=== PATIENT | female | born 1955 | race Caucasian/White ===

== ENCOUNTER 2022-09-30 14:09 | Outpatient (OUT) | payer MEDICARE, BC, SELFPAY ==
--- NOTE | 2022-09-30 15:59 | CA_ITS ---
Patient: GOYO HENDERSON Exam Date: 09/30/2022 : 1955 Gender:F Ordering : MARKUS GARAY Admission #: [id number] Family : DR CANDI PEDRAZA M.D. Order #: [id number] CLICK HERE TO VIEW EXAM ECHOCARDIOGRAM REPORT PROCEDURE: CA ECHO DOPPLER COMPLETE INDICATIONS: SOB, CAD, JOSÉ COMPARISON: None. DESCRIPTION: COMPLETE ECHOCARDIOGRAM Real-time transthoracic echocardiography with 2D, M-mode, spectral and color flow Doppler performed. QUALITY: Technical quality was limited. LEFT VENTRICLE: Normal chamber size. Normal left ventricular wall thickness. Global left ventricular systolic function is normal. LV EF: Normal left ventricular ejection fraction, (>55%). DIASTOLIC: Normal diastolic function. ATRIAL SEPTUM: Inadequately visualized. LEFT ATRIUM: Normal chamber size. RIGHT ATRIUM: Normal chamber size. RIGHT VENTRICLE: Mild dilatation. Normal right ventricular systolic function. TRICUSPID VALVE: Normal mobility and thickness. No stenosis with trivial regurgitation. RVSP 24mmHg MITRAL VALVE: Mildly thickened with normal mobility. No evidence of mitral valve stenosis. Mild mitral regurgitation. AORTIC VALVE: Normal aortic valve. No evidence of aortic valve stenosis. No aortic regurgitation. AORTIC ROOT: Moderately dilated. PULMONIC VALVE: Not well visualized. No stenosis. Trivial regurgitation. PERICARDIUM: Anterior free space; trivial effusion versus fat pad. IVC: Not well visualized. CONCLUSION: Global left ventricular systolic function is normal; visually estimated ejection fraction is 60 to 65%. No significant wall motion abnormalities. The right ventricle is mildly dilated with normal systolic function. Normal diastolic function. Mild mitral regurgitation. Anterior free space; trivial effusion versus fat pad. Adult Echocardiography Procedure Report Left Ventricle LVEDD (3.7 - 5.6 cm): 4.50 cm LVESD (2.2 - 4.0 cm): 3.09 cm LVIVS thickness (0.6 - 1.2 cm): 0.82 cm LVOT Max Gradient: 4.51 mm[Hg] Peak Velocity (LVOT): 1.06 m/s Left Atrium Mitral Valve MV E to A Ratio: 0.98 Right Ventricle RV Internal Diastolic Dimension: 4.06 cm Aorta Ascending Ao Diam: 3.34 cm Aortic Valve Peak Velocity(Antegrade Flow): 1.48 m/s Peak Gradient(Antegrade Flow): 8.74 mm[Hg] Tricuspid Valve Peak Velocity (Regurgitant Flow): 2.31 m/s Pulmonic Valve Peak Gradient: 2.91 mm[Hg] Right Atrium Dictated by: Yi Joiner M.D. on 10/01/2022 at 18:55 Approved by: Yi Joiner M.D. on 10/01/2022 at 18:59
== END 2022-09-30 14:10 | disposition home or self-care (01) ==
LOC: CARD 14:20
PROVIDERS: PCP Family Medicine; Visit Provider Nurse Practitioner
DX: R06.02 Shortness of breath (principal); R06.09 Other forms of dyspnea; I34.0 Nonrheumatic mitral (valve) insufficiency; R93.1 Abnormal findings on diagnostic imaging of heart and coronary circulation
CPT/HCPCS: 93306

== ENCOUNTER 2022-12-04 08:13 | Outpatient (OUT) | payer MEDICARE, BC, SELFPAY ==
--- NOTE | 2022-12-04 08:19 | XR_ITS ---
The [address] [address] Patient Name: GOYO HENDERSON MRN: [id number] date: 1955 Sex: F Assigned Patient Location: [facility] Current Patient Location: [facility] Accession/Order Number: [id number] Exam Date: 12/04/2022 08:25 Report Date: 12/04/2022 08:45 At the request of: MARKUS GARAY Procedure: XR chest 2V EXAM: Chest x-ray HISTORY: Shortness of breath. R06.02 . COMPARISON: 06/11/2020 TECHNIQUE: Frontal and lateral chest FINDINGS: Heart and vascularity are unremarkable. Lungs are free of focal infiltrates. There is a small amount of atelectasis in the right lung base. No acute bony abnormality is appreciated. XR/XR chest 2V IMPRESSION: 1. Small amount of atelectasis in the right lung base. 2. Remainder of lung donaldson are unremarkable. Electronically authenticated by: SURESH CURRAN Date: 12/04/2022 08:45
[2022-12-04 08:56] LABS: Hemoglobin 14.7 g/dL (12.0-16.0)
[2022-12-04 09:46] VITALS: PULSE 78; RESP 16; O2SAT 92
[2022-12-04] MEDS: ALBUTEROL SULFATE 2.5 MG/3 ML VIAL NEB IH (09:46)
--- NOTE | 2022-12-04 10:36 | RT_ITS ---
The [facility] Test Date: 2022-12-04 Pat Name: GOYO HENDERSON Department: Room: - Gender: Female Hospital Plan Administrator: Tita Mcghee RRT : 1955 Requested By: [id number] Order Number: [id number] Reading MD: Bryce Mcknight Interpretive Statements Pulmonary function testing was completed according to ATS criteria. Findings were considered accurate and reproducible, with exception of DLCO which did not meet ATS standards. Both pre- and post-bronchodilator values utilized for spirometry. No prior studies available for comparison. Spirometry (based on pre-bronchodilator values): -FEV1/FVC: Normal @ 77% -FEV1: Reduced @ 74% -FVC: Reduced @ 74% -There is no significant bronchodilator response. Lung volumes by plethysmography (based on pre-bronchodilator values): -RV: Normal @ 108% -TLC: Normal @ 105% Diffusion capacity: -DLCO: Moderate reduction @ 64% when corrected for Hb 14.7g/dL Flow-volume loop: -Mild restrictive pattern Impressions: -Spirometry has mixed obstructive and restrictive features. Restriction is not evident in lung volumes as they are normal. This pattern may be due to patient's obesity (stated BMI 40). Moderate diffusion impairment, but she did not meet ATS criteria. There may be an underlying obstructive process, but overall testing is non-diagnostic. Clinical correlation required. Electronically Signed On 12-10-2022 13:27:46 EDT by Bryce Mcknight
== END 2022-12-04 08:14 | disposition home or self-care (01) ==
LOC: RAD 08:13
PROVIDERS: PCP Family Medicine; Visit Provider Nurse Practitioner
DX: R06.02 Shortness of breath (principal)
CPT/HCPCS: 36415; 71046; 85018; 94060; 94640; 94726; 94729

== ENCOUNTER 2023-01-19 09:18 | Outpatient (OUT) | payer MEDICARE, BC, SELFPAY ==
[2023-01-19 09:52] LABS: Basophils Percent Auto 0.9 % (0.2-2.0); Eosinophils Absolute Auto 0.1 10^3/uL (0.0-0.7); Eosinophils Percent Auto 1.9 % (0.9-7.0); Hematocrit 42.6 % (36.0-48.0); Hemoglobin 14.3 g/dL (12.0-16.0); Immature Granulocytes Abs Auto 0.01 10^3/uL (0.00-0.03); Immature Granulocytes Pct Auto 0.2 % (0.0-0.5); Lymphocytes Absolute Auto 1.6 10^3/uL (1.2-3.8); Lymphocytes Percent Auto 34.6 % (20.5-60.0); Mean Corpuscular HGB Conc 33.6 g/dL (29.9-35.2); Mean Corpuscular Hemoglobin 31.3 pg (26.7-34.0); Mean Corpuscular Volume 93.2 fL (81.0-99.0); Mean Platelet Volume 10.3 fL (9.5-13.5); Monocytes Absolute Auto 0.4 10^3/uL (0.3-0.8); Monocytes Percent Auto 8.8 % (1.7-12.0); Neutrophils Absolute Auto 2.5 10^3/uL (1.4-6.5); Neutrophils Percent Auto 53.6 % (43.0-75.0); Platelet Count 211 10^3/uL (150-450); Red Blood Count 4.57 10^6/uL (4.20-5.40); Red Cell Distribution Width 12.1 % (11.0-15.0); White Blood Count 4.7 10^3/uL (4.0-11.0)
[2023-01-22 12:14] LABS: Immunoglobulin E, Total 59 IU/mL (6-495)
== END 2023-01-19 09:19 | disposition home or self-care (01) ==
LOC: LAB 09:19
PROVIDERS: PCP Family Medicine; Visit Provider Internal Medicine
DX: J44.9 Chronic obstructive pulmonary disease, unspecified (principal)
CPT/HCPCS: 36415; 82785; 85025

== ENCOUNTER 2024-06-06 20:51 | Outpatient (OUT) | payer MEDICARE, SELFPAY ==
--- OUTSIDE RECORDS SUMMARY | 2024-06-06 20:54 | XMS_ITS | CCD ---
Author Organization [facility] Care Team Providers Care Magistrate Assistant Name Role Phone LoulouAmadeo ambriz Young Attending Provider Luis Enrique Pedraza Primary Care Provider [phone] MISC, DR PRADO Attending Unavailable MISC, DR PRADO Consulting Unavailable MILO, DR CHRISTOPHER Primary Care Unavailable MISC, DR PRADO Admitting Unavailable TANISHA, MARKUS Admitting Unavailable TANISHA, MARKUS Attending Unavailable TANISHA, MARKUS Consulting Unavailable MILO, DR CHRISTOPHER Primary Care Unavailable HEMMER, DR RAYNA Hair Admitting Unavailable HEMMER, DR RAYNA Hair Attending Unavailable HEMMER, DR RAYNA Hair Consulting Unavailable MILO, DR CHRISTOPHER Primary Care Unavailable MILO, DR CHRISTOPHER Primary Care Unavailable SAMSA .RONN Admitting Unavailable HOOD RIVER, DR SURESH Sandoval Consulting Unavailable SAMSA ., RONN Attending Unavailable SAMSA ., RONN Consulting Unavailable Booker Ch Unavailable Luis Enrique Pedraza MD Primary Care Provider [phone] LUIS ENRIQUE PEDRAZA Primary Care Physician RAYNA AVILES Referring Unavailable HEMRAYNA ZAVALETA Attending Unavailable AMBER GARY Attending Unavailable HEMRAYNA ZAVALETA Attending Unavailable HEMRAYNA ZAVALETA Referring Unavailable HEMRAYNA ZAVALETA Referring Unavailable RAMBASEDALE Tejeda Attending Unavailable HEMRAYNA ZAVALETA Attending Unavailable HEMRAYNA ZAVALETA Attending Unavailable RAMBASEKDALE Attending Unavailable HEMRAYNA ZAVALETA Attending Unavailable HEMRAYNA ZAVALETA Referring Unavailable TANISHA, MARKUS Attending Unavailable MOUKAARUN MTZ Attending Unavailable Unavailable Unavailable Unavailable Allergies Allergy Classification Reported Allergen(s) Allergy Type Date of Onset Reaction(s) Facility Unclassified (1 source) No Known Medication Allergies; Translations: [No Known Medication Allergies] Propensity to adverse reactions (disorder) [facility] Repository (1 source) celecoxib Drug Allergy 0 [facility] Repository (1 source) Cephalexin Drug Allergy 0 [facility] Repository (12 sources) Other Propensity to adverse reactions 3 [facility] Work Phone: Medications Current Medications Medication Drug Class(es) Dates Sig (Normalized) Sig (Original) [id number] 200 actuat albuterol 0.09 mg/actuat metered dose inhaler (12 sources) beta2-Adrenergic Agonist take 2 puff(s) by inhalation every four hours albuterol HFA 90 mcg/act inhaler Inhale 2 puffs every 4 (four) hours if needed. Active amoxicillin 875 mg oral tablet (1 source) Penicillin-class Antibacterial Start: 05-05-2023 End: 05-12-2023 take 1 tablet by mouth in the morning amoxicillin (Amoxil) 875 MG tablet Indications: Acute non-recurrent maxillary sinusitis Take 1 tablet (875 mg) by mouth in the morning and 1 tablet (875 mg) before bedtime. Do all this for 7 days. 14 tablet 0 05/05/2023 05/12/2023 Active aspirin 81 mg delayed release oral tablet (13 sources) Platelet Aggregation Inhibitor, Nonsteroidal Anti-inflammatory Drug Start: 07-11-2020 End: 05-23-2024 take 1 tablet by mouth once daily aspirin 81 mg Oral EC Tab 81 mg = 1 tab(s), Oral, Daily, # 30 tab(s), Refills(s) 0 Start Date: 07/11/20 Status: Ordered 120 actuat budesonide 0.16 mg/actuat / formoterol fumarate 0.0048 mg/actuat / glycopyrrolate 0.009 mg/actuat metered dose inhaler (13 sources) Corticosteroid, beta2-Adrenergic Agonist Start: 04-06-2022 Breztri Aerosphere 160-9-4.8 MCG/ACT aerosol 04/06/2022 Active take 2 puff(s) by inhalation twi ce daily Breztri Aerosphere 160-9-4.8 MCG/ACT 2 puffs Inhalation Twice a day Active cholecalciferol 0.05 mg oral tablet (9 sources) Vitamin D Start: 06-01-2023 take 1 tablet by mouth once daily cholecalciferol 50 MCG (2000 UT) tablet Indications: Osteopenia of multiple sites Take 2,000 Units by mouth Daily 06/01/2023 Active Claritin-D 24 Hour (1 source) Claritin-D 24 Ho ur Active estradiol 0.1 mg/ml vaginal cream (12 sources) Estrogen Start: 06-04-2022 estradiol (Estrace) 0.1 MG/GM vaginal cream Insert 1 g into the vagina 2 (two) times a week. 06/04/2022 Active ezetimibe 10 mg oral tablet (10 sources) Dietary Cholesterol Absorption Inhibitor Start: 04-30-2023 End: 04-29-2024 take 1 tablet by mouth in the morning ezetimibe (Zetia) 10 MG tablet Take 10 mg by mouth in the morning. 04/30/2023 Active fluticasone propionate 0.05 mg/actuat metered dose nasal spray (12 sources) Corticosteroid Start: 05-23-2024 End: 05-23-2025 take 2 spray(s) nasal route once daily fluticasone (Flonase) 50 MCG/ACT nasal spray Indications: OME (otitis media with effusion), left Administer 2 sprays into each nostril Daily Shake gently. Before first use, prime pump. After use, clean tip and replace cap. 48 g 3 05/23/2024 05/23/2025 Active Start: 03-18-2022 End: 02-08-2024 take 2 spray(s) nasal route once daily fluticasone (Flonase) 50 MCG/ACT nasal spray Administer 2 sprays into each nostril 1 (one) time each day at the same time. 03/18/2022 02/08/2024 Discontinued take 1 spray(s) nasa l route once daily Fluticasone Propionate 50 MCG/ACT 1 spray in each nostril Nasally Once a day Active hydroCHLOROthiazide 25 mg oral tablet (4 sources) Thiazide Diuretic take 1 tablet by mouth in the morning hydroCHLOROthiazide (HYDRODiuril) 25 MG tablet Take 25 mg by mouth in the morning. 0 Active Claritin (13 sources) Start: 2020 Claritin Daily, Refills(s) 0 Start Date: 07/11/20 Status: Ordered loratadine (Clar itin) 10 MG tablet Take by mouth Active meloxicam 15 mg oral tablet (14 sources) Nonsteroidal Anti-inflammatory Drug Start: 03-23-2024 take 1 tablet by mouth once daily meloxicam (Mobic) 15 MG tablet Indications: Arthralgia, unspecified joint TAKE 1 TABLET BY MOUTH ONCE DAILY 90 tablet 3 03/23/2024 Active Start: 07-11-2020 take 1 tablet by kya th once daily meloxicam (Mobic) 15 MG tablet Indications: Arthralgia, unspecified joint TAKE 1 TABLET BY MOUTH ONCE DAILY 90 tablet 3 04/23/2023 Active 24 hr metFORMIN hydrochloride 500 mg extended release oral tablet (9 sources) Biguanide Start: 05-13-2023 End: 06-16-2024 take 1 tablet by mouth every twenty-four hours at mealtime metFORMIN XR (Glucophage-XR) 500 MG 24 hr tablet Indications: Impaired fasting glucose TAKE 1 TABLET BY MOUTH IN THE EVENING TAKE WITH MEALS DO NOT CRUSH, CHEW, OR SPLIT 90 tablet 3 03/23/2024 Active 24 hr metoprolol succinate 25 mg extended release oral tablet (13 sources) beta-Adrenergic Braydon Start: 09-15-2022 End: 05-23-2024 take 1 tablet by mouth every twenty-four hours in the morning metoprolol succinate XL (Toprol-XL) 25 MG 24 hr tablet Take 25 mg by mouth in the morning. 09/15/2022 05/23/2024 Discontinued (Therapy completed) take 1 tablet by kya th every twenty-four hours Metoprolol Succinate ER 25 MG 1 tablet Orally Once a day Active 60 actuat olodaterol 0.0025 mg/actuat / tiotropium 0.0025 mg/actuat inhalation spray (1 source) Anticholinergic, beta2-Adrenergic Agonist Start: 07-18-2020 Stiolto Respimat 2.5 mcg-2.5 mcg inhalation aerosol Inhalation, q24hr, Refills(s) 0 Start Date: 07/18/20 Status: Ordered omeprazole 40 mg delayed release oral capsule (1 source) Proton Pump Inhibitor Start: 07-11-2020 take 1 capsule by mouth once daily omeprazole 40 mg Cap-DR 40 mg = 1 cap(s), Oral, Daily, # 30 cap(s), Refills(s) 0 Start Date: 07/11/20 Status: Ordered predniSONE 10 mg oral tablet (2 sources) Start: 02-08-2024 End: 02-16-2024 take 1 tablet by mouth three times daily, then take 1 tablet by mouth twice daily, then take 1 tablet by mouth once daily predniSONE (Deltasone) 10 MG tablet Indications: Chronic bilateral low back pain without sciatica Take 1 tablet (10 mg) by mouth 3 (three) times a day for 3 days, THEN 1 tablet (10 mg) 2 (two) times a day for 3 days, THEN 1 tablet (10 mg) Daily for 3 days. 18 tablet 02/08/2024 02/16/2024 Active simvastatin 20 mg oral tablet (5 sources) HMG-CoA Reductase Inhibitor take 1 tablet by mouth at bedtime simvastatin (Zocor) 20 MG tablet Take 20 mg by mouth at bedtime Active Tezepelumab-ekko (Tezspire) 210 MG/1.91ML solution prefilled syringe (9 sources) inject 210 mg by subcutaneous injection every 30 days Tezepelumab-ekko (Tezspire) 210 MG/1.91ML solution prefilled syringe Inject 210 mg under the skin every 30 (thirty) days Active tiZANidine 4 mg oral tablet (5 sources) Central alpha-2 Adrenergic Agonist Start: 02-08-2024 End: 02-18-2024 take 1 tablet by mouth every eight hours for muscle spasms tiZANidine (Zanaflex) 4 MG tablet Indications: Chronic bilateral low back pain without sciatica Take 1 tablet (4 mg) by mouth every 8 (eight) hours if needed for muscle spasms for up to 10 days 30 tablet 02/08/2024 Active Completed/Discontinued Medications Medication Drug Class(es) Dates Sig (Normalized) Sig (Original) atorvastatin 40 mg oral tablet (2 sources) HMG-CoA Reductase Inhibitor Start: 07-27-2022 End: 05-05-2023 take 1 tablet by mouth in the morning atorvastatin (Lipitor) 40 MG tablet Take 40 mg by mouth in the morning. 0 07/27/2022 05/05/2023 Discontinued (Side effects) calcium carbonate 1500 mg oral tablet (6 sources) Start: 06-01-2023 End: 02-08-2024 take 1 tablet by mouth in the morning calcium carbonate (Calcium 600) 600 MG tablet Indications: Osteopenia of multiple sites Take 1 tablet (600 mg) by mouth in the morning and 1 tablet (600 mg) in the evening. Take with meals. 06/01/2023 02/08/2024 Discontinued microencapsulated potassium chloride 10 meq extended release oral tablet (6 sources) Start: 12-01-2023 End: 02-08-2024 take 1 tablet by mouth once daily potassium chloride CR (KLOR-CON) 10 MEQ ER tablet Indications: Localized edema TAKE 1 TABLET BY MOUTH ONCE A DAY *DO NOT CRUSH OR CHEW* 100 tablet 3 12/01/2023 02/08/2024 Discontinued pravastatin sodium 10 mg oral tablet (7 sources) HMG-CoA Reductase Inhibitor Start: 04-30-2023 End: 04-29-2024 take 1 tablet by mouth in the morning pravastatin (Pravachol) 10 MG tablet Take 10 mg by mouth in the morning. 04/30/2023 02/08/2024 Discontinued torsemide 10 mg oral tablet (6 sources) Loop Diuretic Start: 12-01-2023 End: 02-08-2024 take 1 tablet by mouth once daily torsemide (Demadex) 10 MG tablet Indications: Localized edema TAKE 1 TABLET (10 MG) BY MOUTH DAILY. 100 tablet 3 12/01/2023 02/08/2024 Discontinued Problems Active Problems Problem Classification Problem Date Documented Date Episodic/Chronic Administrative/social admission (3 sources) Patient encounter status; Translations: [Other specified counseling] 05-05-2023 Episodic Asthma (17 sources) Mild persistent asthma; Translations: [Mild persistent asthma, uncomplicated] Onset: 04-21-2023 Chronic Cancer of kidney and renal pelvis (12 sources) Malignant tumor of kidney; Translations: [Malignant neoplasm of unspecified kidney, except renal pelvis] Onset: 08-01-2008 05-05-2023 Chronic Cardiac dysrhythmias (14 sources) Palpitations; Translations: [Palpitations] Onset: 05-05-2023 05-05-2023 Episodic Chronic kidney disease (12 sources) Chronic kidney disease stage 3A ; Translations: [Stage 3a chronic kidney disease (HCC) (CMS/HCC)] Onset: 05-05-2023 05-05-2023 Chronic Chronic obstructive pulmonary disease and bronchiectasis (4 sources) Chronic obstructive pulmonary disease, unspecified; Translations: [COPD UNSPECIFIED] Onset: 01-05-2022 Chronic Coronary atherosclerosis and other heart disease (18 sources) Atherosclerotic heart disease of [place] coronary artery without angina pectoris; Translations: [Coronary arteriosclerosis] Onset: 08-01-2022 Chronic Disorders of lipid metabolism (14 sources) Mixed hyperlipidemia; Translations: [Mixed hyperlipidemia] Onset: 09-16-2022 05-05-2023 Chronic Diverticulosis and diverticulitis (13 sources) Diverticulosis of intestine, part unspecified, without perforation or abscess without bleeding; Translations: [Diverticulosis of colon] Onset: 05-05-2023 05-05-2023 Chronic Epilepsy; convulsions (12 sources) Generalized idiopathic epilepsy and epileptic syndromes, not intractable, without status epilepticus; Translations: [Generalized nonconvulsive epilepsy, without mention of intractable epilepsy] Onset: 05-05-2023 05-05-2023 Chronic Essential hypertension (14 sources) Essential hypertension; Translations: [Essential (primary) hypertension] Onset: 05-05-2023 05-05-2023 Chronic Gastritis and duodenitis (1 source) Chronic gastritis; Translations: [Unspecified chronic gastritis without bleeding] 05-05-2023 Chronic Gastroduodenal ulcer (except hemorrhage) (1 source) Peptic ulcer, site unspecified, unspecified as acute or chronic, without hemorrhage or perforation; Translations: [Peptic ulcer disease] Chronic Malaise and fatigue (12 sources) Fatigue; Translations: [Chronic fatigue, unspecified] Onset: 05-05-2023 05-05-2023 Chronic Menopausal disorders (10 sources) Decreased estrogen level; Translations: [Other primary ovarian failure] Onset: 09-07-2023 05-05-2023 Chronic Osteoarthritis (20 sources) Osteoarthritis of right sternoclavicular joint; Translations: [Primary osteoarthritis, right shoulder] Onset: 04-19-2020 05-05-2023 Chronic Other acquired deformities (12 sources) Equinus contracture of the ankle; Translations: [Contracture, right ankle] Onset: 05-05-2023 05-05-2023 Chronic Other acquired deformities (3 sources) Scoliosis deformity of spine; Translations: [Other forms of scoliosis, lumbosacral region] Onset: 02-09-2024 02-09-2024 Chronic Other aftercare (2 sources) Long-term current use of inhaled steroid; Translations: [senior care (current) use of inhaled steroids] Onset: 05-23-2024 05-23-2024 Episodic Other ear and sense organ disorders (12 sources) Sensorineural hearing loss, bilateral; Translations: [Sensorineural hearing loss, bilateral] Onset: 05-05-2023 05-05-2023 Chronic Other ear and sense organ disorders (12 sources) Chronic tympanitis; Translations: [Chronic myringitis, unspecified ear] Onset: 05-05-2023 05-05-2023 Chronic Other female genital disorders (2 sources) Abnormal uterine bleeding; Translations: [Abnormal uterine and vaginal bleeding, unspecified] 02-08-2024 Chronic Other lower respiratory disease (2 sources) Shortness of breath; Translations: [Shortness of breath] Onset: 06-02-2024 Episodic Other non-traumatic joint disorders (3 sources) Disorder of joint of shoulder region; Translations: [Other specified joint disorders, right shoulder] Onset: 05-05-2023 05-05-2023 Episodic Other nutritional; endocrine; and metabolic disorders (10 sources) Severe obesity; Translations: [Morbid (severe) obesity due to excess calories] Onset: 06-01-2023 05-05-2023 Chronic Other upper respiratory disease (1 source) Allergic rhinitis due to pollen; Translations: [Allergic rhinitis due to pollen] 05-05-2023 Chronic Other upper respiratory disease (11 sources) Allergic rhinitis; Translations: [Allergic rhinitis, unspecified] Onset: 04-30-2023 05-05-2023 Chronic Other upper respiratory infections (12 sources) Chronic sinusitis; Translations: [Chronic sinusitis, unspecified] Onset: 05-05-2023 05-05-2023 Chronic Other upper respiratory infections (1 source) Acute maxillary sinusitis; Translations: [Acute maxillary sinusitis, unspecified] 05-05-2023 Episodic Otitis media and related conditions (14 sources) Dysfunction of bilateral eustachian tubes; Translations: [Unspecified Eustachian tube disorder, bilateral] Onset: 05-05-2023 05-05-2023 Episodic Pulmonary heart disease (14 sources) Pulmonary hypertension; Translations: [Pulmonary hypertension, unspecified] Onset: 05-05-2023 Chronic Residual codes; unclassified (16 sources) Obstructive sleep apnea syndrome; Translations: [Obstructive sleep apnea (adult) (pediatric)] Onset: 12-28-2022 12-28-2022 Chronic Residual codes; unclassified (1 source) Obstructive sleep apnea (adult) (pediatric) Chronic Residual codes; unclassified (11 sources) 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; Translations: [Dependence on other enabling machines and devices] Onset: 05-05-2023 05-05-2023 Chronic Residual codes; unclassified (1 source) Lifestyle; Translations: [Other problems related to lifestyle] 05-05-2023 Episodic Residual codes; unclassified (2 sources) Passive smoker; Translations: [Contact with and (suspected) exposure to environmental tobacco smoke (acute) (chronic)] Onset: 05-23-2024 05-23-2024 Episodic Spondylosis; intervertebral disc disorders; other back problems (6 sources) Lumbar spondylosis; Translations: [Spondylosis without myelopathy or radiculopathy, lumbar region] Onset: 02-09-2024 02-09-2024 Chronic Spondylosis; intervertebral disc disorders; other back problems (2 sources) Chronic low back pain; Translations: [Chronic bilateral low back pain without sciatica] 02-08-2024 Episodic Urinary tract infections (9 sources) Chronic cystitis; Translations: [Other chronic cystitis without hematuria] Onset: 09-07-2023 09-07-2023 Chronic Past or Other Problems Problem Classification Problem Date Documented Da te Episodic/Chronic Diabetes mellitus without complication (17 sources) Impaired fasting glucose; Translations: [Impaired fasting glycemia] Onset: 09-09-2021 Episodic Gastritis and duodenitis (11 sources) Gastritis; Translations: [Gastritis, unspecified, without bleeding] Onset: 05-05-2023 05-05-2023 Episodic Mood disorders (10 sources) Mood disorders Onset: 05-05-2023 05-05-2023 Other bone disease and musculoskeletal deformities (9 sources) Osteopenia; Translations: [Other specified disorders of bone density and structure, multiple sites] Onset: 06-01-2023 06-01-2023 Episodic Other ear and sense organ disorders (12 sources) Bilateral tinnitus; Translations: [Tinnitus, bilateral] Onset: 05-05-2023 05-05-2023 Episodic Other ear and sense organ disorders (11 sources) Bullous myringitis of left ear; Translations: [Bullous myringitis, left ear] Onset: 05-05-2023 Resolved: 05-05-2023 05-05-2023 Episodic Other liver diseases (12 sources) ALT (SGPT) level raised; Translations: [Elevated ALT measurement] Onset: 05-05-2023 05-05-2023 Episodic Other lower respiratory disease (12 sources) Dyspnea on exertion; Translations: [Other forms of dyspnea] Onset: 09-16-2022 05-05-2023 Episodic Other non-traumatic joint disorders (9 sources) Arthropathy of right shoulder; Translations: [Other specified joint disorders, right shoulder] Onset: 05-05-2023 05-05-2023 Episodic Other nutritional; endocrine; and metabolic disorders (11 sources) Body mass index 30+ - obesity; Translations: [Body mass index (BMI) 38.0-38.9, adult] Onset: 04-30-2023 Resolved: 05-05-2023 05-05-2023 Chronic Other screening for suspected conditions (not mental disorders or infectious disease) (20 sources) Mammography abnormal; Translations: [Other abnormal and inconclusive findings on diagnostic imaging of breast] Onset: 05-05-2023 05-05-2023 Episodic Residual codes; unclassified (12 sources) Localized edema; Translations: [Localized edema] Onset: 05-05-2023 05-05-2023 Episodic Results Test Name Value Interpretation Reference Range Facility Office Visiton 06-02-2024 Follow-up visit [id number] Maicol Michelle 1955 F Date Provider Department Center 06/02/2024 ARUN RODGERS [facility] Family History Problem Relation Age of Onset Diabetes Mother No Known Problems Father Family Status - Relation Status Age at Mother Father Level of Service:50302 [place] OFFICE/OUTPATIENT ESTABLISHED MOD MDM 30 MIN Normal [facility] XR LUMBAR SPINE 4+ VIEWS WIT H FLEXION EXTENSIONon 02-09-2024 XR LUMBAR SPINE 4+ VIEWS WITH FLEXION EXTENSION Exam: XR LUMBAR SPINE 4+ VIEWS WITH FLEXION EXTENSION Reason for study: Worsening chronic low back pain Comparison: None AP, lateral, lateral flexion, lateral extension, and bilateral oblique views. There is a slight levoconvex curvature of the lumbar spine. No compression deformities. No dynamic instability is seen. There is mild disc space narrowing at L2-L3. There is facet joint osteoarthritis at every level but more severe at L5-S1 and L4-L5. IMPRESSION: Severe facet joint osteoarthritis. Mild disc degeneration of L2-L3. Levoconvex curve of the lower lumbar spine. Dictated on: 02/09/2024 9:54 AM This report has been electronically signed and approved by the interpreting Radiologist. Normal Not Available XR Lumbar spine Views W flex ion and W extensionon 02-09-2024 Exam: XR LUMBAR SPIN E 4+ VIEWS WITH FLEXION EXTENSION Reason for study: Worsening chronic low back pain Comparison: None AP, lateral, lateral flexion, lateral extension, and bilateral oblique views. There is a slight levoconvex curvature of the lumbar spine. No compression deformities. No dynamic instability is seen. There is mild disc space narrowing at L2-L3. There is facet joint osteoarthritis at every level but more severe at L5-S1 and L4-L5. IMPRESSION: Severe facet joint osteoarthritis. Mild disc degeneration of L2-L3. Levoconvex curve of the lower lumbar spine. Dictated on: 02/09/2024 9:54 AM This report has been electronically signed and approved by the interpreting Radiologist. IMAGING Jaxon Lynch DO - 02/09/2024 Exam: XR LUMBAR SPINE 4+ VIEWS WITH FLEXION EXTENSION Reason for study: Worsening chronic low back pain Comparison: None AP, lateral, lateral flexion, lateral extension, and bilateral oblique views. There is a slight levoconvex curvature of the lumbar spine. No compression deformities. No dynamic instability is seen. There is mild disc space narrowing at L2-L3. There is facet joint osteoarthritis at every level but more severe at L5-S1 and L4-L5. IMPRESSION: Severe facet joint osteoarthritis. Mild disc degeneration of L2-L3. Levoconvex curve of the lower lumbar spine. Dictated on: 02/09/2024 9:54 AM This report has been electronically signed and approved by the interpreting Radiologist. [facility] Radiology Study observation (narrative) [facility] XR Lumbar spine Views W flex ion and W extensionOrdered By: Jaxon Lynch on 02-09-2024 [facility] Work Phone: Office Visiton 12-08-2023 Follow-up visit [id number] Maicol Michelle 1955 F Date Provider Department Center 12/08/2023 MARKUS ZHAO CARD [facility] Family History Problem Relation Age of Onset Diabetes Mother No Known Problems Father Family Status - Relation Status Age at Mother Father Level of Service:61709 [place] OFFICE/OUTPATIENT ESTABLISHED LOW MDM 20 MIN Normal [facility] BI MAMMOGRAM DIAGNOSTIC CAILIN SYNTHESIS LEFTon 06-10-2023 BI MAMMOGRAM DIAGNOSTIC TOMOSYNTHESIS LEFT This is a summary report. The complete report is available in the patient's medical record. If you cannot access the medical record, please contact the sending organization for a detailed fax or copy. EXAMINATION: BI MAMMOGRAM DIAGNOSTIC TOMOSYNTHESIS LEFT CLINICAL HISTORY:Abnormal Left Breast Mammogram COMPARISON: May 18, 2023. RESULT: Digital mammography and 3D tomosynthesis of the left breast was performed. Density: Almost entirely fatty [1] Layering calcifications seen on the lateral view within the new group of microcalcifications upper outer quadrant, atypically benign appearance. No associated suspicious mass or distortion. IMPRESSION: BIRADS 2 - Benign Follow-up: Routine Screening Mamm Board Certified Radiologists. Accredited by the ACR and FDA. MAMMOGRAPHY IS VERY IMPORTANT TO YOUR HEALTH. THE [place] [employer] GUIDELINES RECOMMEND THAT WOMEN 40 YEARS OF AGE AND OLDER SHOULD HAVE A MAMMOGRAM EVERY YEAR. A REMINDER LETTER WILL BE SENT AT THE APPROPRIATE TIME. THIS FACILITY UTILIZES A REMINDER SYSTEM TO ENSURE ALL PATIENTS RECEIVE REMINDER NOTIFICATIONS AT THE APPROPRIATE TIME BASED ON THE RECOMMENDATIONS OF THIS EXAM. THIS INCLUDES REMINDERS FOR ROUTINE SCREENING MAMMOGRAMS, DIAGNOSTIC MAMMOGRAMS IN WHICH THE PATIENT IS ASKED TO RETURN FOR ADDITIONAL VIEWS, OR OTHER BREAST IMAGING INTERVENTIONS WHEN APPROPRIATE. THE PATIENT WILL BE PLACED IN THE APPROPRIATE REMINDER SYSTEM INCLUDING A REMINDER AT THE APPROPRIATE TIME FOR ANY PENDING ADDITIONAL VIEWS. TRANSCRIBED BY: ELECTRONICALLY SIGNED BY: Adonis Crocker MD Normal Not Available Physician Referralon 024 Physician Referral [id number] [phone] [id number] F Normal [facility] [place] 06-09-2023 Consent [id number] FF Normal [facility] Physician Referralon 024 Physician Referral [id number] FF Normal [facility] XR ABDOMEN 1 VIEWon 06-02-19 24 XR ABDOMEN 1 VIEW EXAMINATION: XR ABDO MEN 1 VIEW HISTORY: Renal calculi TECHNIQUE: Frontal view of the abdomen and pelvis obtained COMPARISON: CT abdomen/pelvis November 16, 2019 FINDINGS: No calcifications identified over the bilateral renal shadows or expected course of the ureters. Pelvic phleboliths are identified. Nonobstructive bowel gas pattern. No evidence of free air. No acute osseous abnormality. IMPRESSION: No urinary tract calculi identified by radiography. ELECTRONICALLY SIGNED BY: Tadeo Butt, DO Normal Not Available CBC AUTO DIFFon 08-01-2022 BASO # 0.0 103/ul Normal 0.0-0.1 [facility] Comment on above: Performed By: #### C BC #### [facility] [address] [place] [address] Dr. Todd Phillip Basophils/100 WBC (Bld) 0.2 % Normal 0.2-2.0 [facility] Comment on above: Performed By: #### C BC #### [facility] [address] [place] [address] Dr. Todd Phillip EO # 0.1 103/ul Normal 0.0-0.7 [facility] Comment on above: Performed By: #### C BC #### [facility] [address] [place] [address] Dr. Todd Phillip Eosinophils/100 WBC (Bld) 1.4 % Normal 0.9-7.0 [facility] Comment on above: Performed By: #### C BC #### [facility] [address] [place] [address] Dr. Todd Phillip Erythrocyte distribution width (RBC) [Ratio] 12.4 % Normal 11.0-15.0 [facility] Comment on above: Performed By: #### C BC #### [facility] [address] [place] [address] Dr. Todd Phillip Hematocrit (Bld) [Volume fraction] 43.5 % Normal 36.0-48.0 [facility] Comment on above: Performed By: #### C BC #### [facility] [address] [place] [address] Dr. Todd Phillip Hemoglobin (Bld) [Mass/Vol] 14.3 g/dL Normal 12.0-16.0 [facility] Comment on above: Performed By: #### C BC #### [facility] [address] [place] [address] Dr. Todd Phillip IG # 0.01 10e3/ul Normal 0.00-0.03 [facility] Comment on above: Performed By: #### C BC #### [facility] [address] [place] [address] Dr. Todd Phillip IG % 0.2 % Normal 0.0-0.5 [facility] Comment on above: Performed By: #### C BC #### [facility] [address] [place] [address] Dr. Todd Phillip LYMPH # 1.8 103/ul Normal 1.2-3.8 [facility] Comment on above: Performed By: #### C BC #### [facility] [address] [place] [address] Dr. Todd Phillip Lymphocytes/100 WBC (Bld) 42.5 % Normal 20.5-60.0 [facility] Comment on above: Performed By: #### C BC #### [facility] [address] [place] [address] Dr. Todd Phillip MANUAL DIFF REQ NO Normal [facility] Comment on above: Performed By: #### C BC #### [facility] [address] [place] [address] Dr. Todd Phillip MCH (RBC) [Entitic mass] 30.5 pg Normal 26.7-34.0 [facility] Comment on above: Performed By: #### C BC #### [facility] [address] [place] [address] Dr. Todd Phillip MCHC (RBC) [Mass/Vol] 32.9 g/dL Normal 29.9-35.2 [facility] Comment on above: Performed By: #### C BC #### [facility] [address] [place] [address] Dr. Todd Phillip MCV (RBC) [Entitic vol] 92.8 fL Normal 81.0-99.0 [facility] Comment on above: Performed By: #### C BC #### [facility] [address] [place] [address] Dr. Todd Phillip MONO # 0.4 103/ul Normal 0.3-0.8 [facility] Comment on above: Performed By: #### C BC #### [facility] [address] [place] [address] Dr. Todd Phillip Monocytes/100 WBC (Bld) 8.4 % Normal 1.7-12.0 [facility] Comment on above: Performed By: #### C BC #### [facility] [address] [place] [address] Dr. Todd Phillip NEUT # 2.0 103/ul Normal 1.4-6.5 [facility] Comment on above: Performed By: #### C BC #### [facility] [address] [place] [address] Dr. Todd Phillip Neutrophils/100 WBC (Bld) 47.3 % Normal 43.0-75.0 [facility] Comment on above: Performed By: #### C BC #### [facility] [address] [place] [address] Dr. Todd Phillip Platelet mean volume (Bld) [Entitic vol] 10.1 fL Normal 9.5-13.5 [facility] Comment on above: Performed By: #### C BC #### [facility] [address] [place] [address] Dr. Todd Phillip PLT 216 103/ul Normal 150-450 [facility] Comment on above: Performed By: #### C BC #### [facility] [address] [place] [address] Dr. Todd Phillip RBC 4.69 106/ul Normal 4.20-5.40 [facility] Comment on above: Performed By: #### C BC #### [facility] [address] [place] [address] Dr. Todd Phillip WBC 4.3 103/ul Normal 4.0-11.0 [facility] Comment on above: Performed By: #### C BC #### [facility] [address] [address] [address] Todd Phillip LIPID PROFILEon 08-01-2022 CHOL-HDL RATIO NORM SEE BELOW Normal [facility] Comment on above: Result Comment: 3.3 - 4.4 LOW RISK 4.4 - 7.1 AVERAGE RISK 7.1 - 11.0 MODERATE RISK >11.0 HIGH RISK Performed By: #### C MP, LIPID #### [facility] [address] [address] [address] Todd Phillip Cholesterol [Mass/Vol] 163 mg/dL Normal <=200 [facility] Comment on above: Performed By: #### C MP, LIPID #### [facility] [address] [address] [address] Todd Phillip Cholesterol in HDL [Mass/Vol] 45 mg/dL Normal 40-60 [facility] Comment on above: Performed By: #### C MP, LIPID #### [facility] [address] [address] [address] Todd Phillip Cholesterol in LDL [Mass/Vol] 99.4 mg/dL Normal [facility] Comment on above: Performed By: #### C MP, LIPID #### [facility] [address] [address] [address] Todd Phillip Cholesterol.total/Ch olesterol in HDL [Mass ratio] 3.6 {ratio} Normal [facility] Comment on above: Performed By: #### C MP, LIPID #### [facility] [address] [address] [address] Todd Phillip HDL NORMAL > or = 60 mg/dl - LO W CARDIOVASCULAR RISK <40 mg/dl - HIGH CARDIOVASCULAR RISK Normal [facility] Comment on above: Performed By: #### C MP, LIPID #### [facility] [address] [address] [address] Todd Phillip LDL CALC NORMAL SEE BELOW Normal [facility] Comment on above: Result Comment: <100 mg/dl OPTIMAL 100 - 129 mg/dl NEAR OR ABOVE OPTIMAL 130 - 159 mg/dl BORDERLINE HIGH 160 - 189 mg/dl HIGH >190 mg/dl VERY HIGH Performed By: #### C MP, LIPID #### [facility] [address] [address] [address] Todd Phillip Triglyceride [Mass/Vol] 93 mg/dL Normal <=150 [facility] Comment on above: Performed By: #### C MP, LIPID #### [facility] [address] [place] [address] Dr. Todd Phillip VLDL CALC 18.6 mg/dL Normal [facility] Comment on above: Performed By: #### C MP, LIPID #### [facility] [address] [address] [address] Todd Phillip PROF 14(COMP METB)on 023 Albumin [Mass/Vol] 3.5 g/dL Normal 3.4-5.0 [facility] Comment on above: Performed By: #### C MP, LIPID #### [facility] [address] [place] [address] Dr. Todd Phillip Albumin/Globulin [Mass ratio] 1.0 {ratio} Normal [facility] Comment on above: Performed By: #### C MP, LIPID #### [facility] [address] [place] [address] Dr. Todd Phillip ALP [Catalytic activity/Vol] 86 U/L Normal 46-116 [facility] Comment on above: Performed By: #### C MP, LIPID #### [facility] [address] [place] [address] Dr. Todd Phillip ALT [Catalytic activity/Vol] 55 U/L Normal 14-59 [facility] Comment on above: Performed By: #### C MP, LIPID #### [facility] [address] [place] [address] Dr. Todd Phillip Anion gap [Moles/Vol] 9.5 mmol/L Normal [facility] Comment on above: Performed By: #### C MP, LIPID #### [facility] [address] [address] [address] Todd Phillip AST [Catalytic activity/Vol] 16 U/L Normal 15-37 [facility] Comment on above: Performed By: #### C MP, LIPID #### [facility] [address] [address] [address] Todd Phillip Bilirubin [Mass/Vol] 0.3 mg/dL Normal 0.2-1.0 [facility] Comment on above: Performed By: #### C MP, LIPID #### [facility] [address] [place] [address] Dr. Todd Phillip Calcium [Mass/Vol] 8.8 mg/dL Normal 8.5-10.1 [facility] Comment on above: Performed By: #### C MP, LIPID #### [facility] [address] [place] [address] Dr. Todd Phillip Chloride [Moles/Vol] 106 mmol/L Normal 98-107 [facility] Comment on above: Performed By: #### C MP, LIPID #### [facility] [address] [place] [address] Dr. Todd Phillip CO2 [Moles/Vol] 27.8 mmol/L Normal 21.0-32.0 [facility] Comment on above: Performed By: #### C MP, LIPID #### [facility] [address] [place] [address] Dr. Todd Phillip Creatinine [Mass/Vol] 0.94 mg/dL Normal 0.55-1.02 [facility] Comment on above: Performed By: #### C MP, LIPID #### [facility] [address] [place] [address] Dr. Todd Phillip EGFR-AF [place] >60 Normal >=60 [facility] Comment on above: Performed By: #### C MP, LIPID #### [facility] [address] [place] [address] Dr. Todd Phillip EGFR-NON AF [place] 60 mL/min/1.73m2 Normal >=60 [facility] Comment on above: Performed By: #### C MP, LIPID #### [facility] [address] [place] [address] Dr. Todd Phillip Globulin (S) [Mass/Vol] 3.5 g/dL Normal [facility] Comment on above: Performed By: #### C MP, LIPID #### [facility] [address] [address] [address] Todd Phillip Glucose [Mass/Vol] 123 mg/dL Critically high 74-106 [facility] Comment on above: Performed By: #### C MP, LIPID #### [facility] [address] [address] [address] Todd Phillip Potassium [Moles/Vol] 4.3 mmol/L Normal 3.5-5.1 [facility] Comment on above: Performed By: #### C MP, LIPID #### [facility] [address] [address] [address] Todd Phillip Protein [Mass/Vol] 7.0 g/dL Normal 6.4-8.2 [facility] Comment on above: Performed By: #### C MP, LIPID #### [facility] [address] [address] [address] Todd Phillip Sodium [Moles/Vol] 139 mmol/L Normal 136-145 [facility] Comment on above: Performed By: #### C MP, LIPID #### [facility] [address] [address] [address] Todd Phillip Urea nitrogen [Mass/Vol] 17.0 mg/dL Normal 7.0-18.0 [facility] Comment on above: Performed By: #### C MP, LIPID #### [facility] [address] [address] [address] Todd Phillip Urea nitrogen/Creatinine [Mass ratio] 18.1 mg/mg Normal [facility] Comment on above: Performed By: #### C MP, LIPID #### [facility] [address] [address] [address] Todd Phillip XR CHEST 2 Von 01-05-2022 XR CHEST 2 V EXAMINATION: XR CHES T 2 V HISTORY: Chronic obstructive lung disease COMPARISON: 06/11/2020 TECHNIQUE: PA and lateral FINDINGS: LUNGS: No significant pulmonary parenchymal abnormalities. VASCULATURE: No increased pulmonary vasculature. PLEURA: No pneumothorax, effusion, or pleural thickening. CARDIAC: No cardiomegaly or cardiac silhouette abnormality. MEDIASTINUM: No visible mass or adenopathy. BONES: No fracture or visible bone lesion. OTHER: Negative. IMPRESSION: No acute disease. Electronically authenticated by: SURESH WELLS Date: 2022-01-05 16:09 Normal [facility] CBC AUTO DIFFon 09-09-2021 BASO # 0.0 103/ul Normal 0.0-0.1 [facility] Comment on above: Performed By: #### C BC #### [facility] [address] [place] [address] Dr. Todd Phillip Basophils/100 WBC (Bld) 0.7 % Normal 0.2-2.0 [facility] Comment on above: Performed By: #### C BC #### [facility] [address] [place] [address] Dr. Todd Phillip EO # 0.2 103/ul Normal 0.0-0.7 [facility] Comment on above: Performed By: #### C BC #### [facility] [address] [place] [address] Dr. Todd Phillip Eosinophils/100 WBC (Bld) 3.5 % Normal 0.9-7.0 [facility] Comment on above: Performed By: #### C BC #### [facility] [address] [place] [address] Dr. Todd Phillip Erythrocyte distribution width (RBC) [Ratio] 12.3 % Normal 11.0-15.0 [facility] Comment on above: Performed By: #### C BC #### [facility] [address] [place] [address] Dr. Todd Phillip Hematocrit (Bld) [Volume fraction] 42.5 % Normal 36.0-48.0 [facility] Comment on above: Performed By: #### C BC #### [facility] [address] [place] [address] Dr. Todd Phillip Hemoglobin (Bld) [Mass/Vol] 13.9 g/dL Normal 12.0-16.0 [facility] Comment on above: Performed By: #### C BC #### [facility] [address] [place] [address] Dr. Todd Phillip IG # 0.02 10e3/ul Normal 0.00-0.03 [facility] Comment on above: Performed By: #### C BC #### [facility] [address] [place] [address] Dr. Todd Phillip IG % 0.5 % Normal 0.0-0.5 [facility] Comment on above: Performed By: #### C BC #### [facility] [address] [place] [address] Dr. Todd Phillip LYMPH # 1.8 103/ul Normal 1.2-3.8 [facility] Comment on above: Performed By: #### C BC #### [facility] [address] [place] [address] Dr. Todd Phillip Lymphocytes/100 WBC (Bld) 41.8 % Normal 20.5-60.0 [facility] Comment on above: Performed By: #### C BC #### [facility] [address] [place] [address] Dr. Todd Phillip MANUAL DIFF REQ NO Normal [facility] Comment on above: Performed By: #### C BC #### [facility] [address] [place] [address] Dr. Todd Phillip MCH (RBC) [Entitic mass] 30.2 pg Normal 26.7-34.0 [facility] Comment on above: Performed By: #### C BC #### [facility] [address] [place] [address] Dr. Todd Phillip MCHC (RBC) [Mass/Vol] 32.7 g/dL Normal 29.9-35.2 [facility] Comment on above: Performed By: #### C BC #### [facility] [address] [place] [address] Dr. Todd Phillip MCV (RBC) [Entitic vol] 92.4 fL Normal 81.0-99.0 [facility] Comment on above: Performed By: #### C BC #### [facility] [address] [place] [address] Dr. Todd Phillip MONO # 0.5 103/ul Normal 0.3-0.8 [facility] Comment on above: Performed By: #### C BC #### [facility] [address] [place] [address] Dr. Todd Phillip Monocytes/100 WBC (Bld) 12.1 % Critically high 1.7-12.0 [facility] Comment on above: Performed By: #### C BC #### [facility] [address] [place] [address] Dr. Todd Phillip NEUT # 1.8 103/ul Normal 1.4-6.5 [facility] Comment on above: Performed By: #### C BC #### [facility] [address] [place] [address] Dr. Todd Phillip Neutrophils/100 WBC (Bld) 41.4 % Critically low 43.0-75.0 [facility] Comment on above: Performed By: #### C BC #### [facility] [address] [place] [address] Dr. Todd Phillip Platelet mean volume (Bld) [Entitic vol] 10.0 fL Normal 9.5-13.5 [facility] Comment on above: Performed By: #### C BC #### [facility] [address] [place] [address] Dr. Todd Phillip PLT 211 103/ul Normal 150-450 [facility] Comment on above: Performed By: #### C BC #### [facility] [address] [place] [address] Dr. Todd Phillip RBC 4.60 106/ul Normal 4.20-5.40 [facility] Comment on above: Performed By: #### C BC #### [facility] [address] [place] [address] Dr. Todd Phillip WBC 4.2 103/ul Normal 4.0-11.0 [facility] Comment on above: Performed By: #### C BC #### [facility] [address] [place] [address] Dr. Todd Phillip GLYCOHEMOGLOBIN A1Con 2021 ADA RECOMMENDATION SEE BELOW Normal [facility] Comment on above: Result Comment: ADA RECOMMENDED LIMIT 4.0 - 6.0 ADA THERAPEUTIC TARGET < 7.0 ACTION SUGGESTED > 7.0 Performed By: #### A 1C #### [facility] [address] [place] [address] Dr. Todd Phillip Glucose [Mass/Vol] 126 mg/dL Normal [facility] Comment on above: Performed By: #### A 1C #### [facility] [address] [place] [address] Dr. Todd Phillip HbA1c (Bld) [Mass fraction] 6.0 % Normal 4.5-6.2 [facility] Comment on above: Performed By: #### A 1C #### [facility] [address] [place] [address] Dr. Todd Phillip LIPID PROFILEon 09-09-2021 CHOL-HDL RATIO NORM SEE BELOW Normal [facility] Comment on above: Result Comment: 3.3 - 4.4 LOW RISK 4.4 - 7.1 AVERAGE RISK 7.1 - 11.0 MODERATE RISK >11.0 HIGH RISK Performed By: #### C MP, LIPID #### [facility] [address] [place] [address] Dr. Todd Phillip Cholesterol [Mass/Vol] 176 mg/dL Normal <=200 [facility] Comment on above: Performed By: #### C MP, LIPID #### [facility] [address] [place] [address] Dr. Todd Phillip Cholesterol in HDL [Mass/Vol] 40 mg/dL Normal 40-60 [facility] Comment on above: Performed By: #### C MP, LIPID #### [facility] [address] [place] [address] Dr. Todd Phillip Cholesterol in LDL [Mass/Vol] 122.8 mg/dL Normal [facility] Comment on above: Performed By: #### C MP, LIPID #### [facility] [address] [place] [address] Dr. Todd Phillip Cholesterol.total/Ch olesterol in HDL [Mass ratio] 4.4 {ratio} Normal [facility] Comment on above: Performed By: #### C MP, LIPID #### [facility] [address] [place] [address] Dr. Todd Phillip HDL NORMAL > or = 60 mg/dl - LO W CARDIOVASCULAR RISK <40 mg/dl - HIGH CARDIOVASCULAR RISK Normal [facility] Comment on above: Performed By: #### C MP, LIPID #### [facility] [address] [address] [address] Todd Phillip LDL CALC NORMAL SEE BELOW Normal [facility] Comment on above: Result Comment: <100 mg/dl OPTIMAL 100 - 129 mg/dl NEAR OR ABOVE OPTIMAL 130 - 159 mg/dl BORDERLINE HIGH 160 - 189 mg/dl HIGH >190 mg/dl VERY HIGH Performed By: #### C MP, LIPID #### [facility] [address] [place] [address] Dr. Todd Phillip Triglyceride [Mass/Vol] 66 mg/dL Normal <=150 [facility] Comment on above: Performed By: #### C MP, LIPID #### [facility] [address] [place] [address] Dr. Todd Phillip VLDL CALC 13.2 mg/dL Normal [facility] Comment on above: Performed By: #### C MP, LIPID #### [facility] [address] [place] [address] Dr. Todd Phillip PROF 14(COMP METB)on 022 Albumin [Mass/Vol] 3.5 g/dL Normal 3.4-5.0 [facility] Comment on above: Performed By: #### C MP, LIPID #### [facility] [address] [place] [address] Dr. Todd Phillip Albumin/Globulin [Mass ratio] 1.1 {ratio} Normal [facility] Comment on above: Performed By: #### C MP, LIPID #### [facility] [address] [place] [address] Dr. Todd Phillip ALP [Catalytic activity/Vol] 77 U/L Normal 46-116 [facility] Comment on above: Performed By: #### C MP, LIPID #### [facility] [address] [place] [address] Dr. Todd Phillip ALT [Catalytic activity/Vol] 41 U/L Normal 14-59 [facility] Comment on above: Performed By: #### C MP, LIPID #### [facility] [address] [place] [address] Dr. Todd Phillip Anion gap [Moles/Vol] 13.2 mmol/L Normal [facility] Comment on above: Performed By: #### C MP, LIPID #### [facility] [address] [place] [address] Dr. Todd Phillip AST [Catalytic activity/Vol] 15 U/L Normal 15-37 [facility] Comment on above: Performed By: #### C MP, LIPID #### [facility] [address] [place] [address] Dr. Todd Phillip Bilirubin [Mass/Vol] 0.2 mg/dL Normal 0.2-1.0 [facility] Comment on above: Performed By: #### C MP, LIPID #### [facility] [address] [place] [address] Dr. Todd Phillip Calcium [Mass/Vol] 8.4 mg/dL Critically low 8.5-10.1 [facility] Comment on above: Performed By: #### C MP, LIPID #### [facility] [address] [place] [address] Dr. Todd Phillip Chloride [Moles/Vol] 107 mmol/L Normal 98-107 [facility] Comment on above: Performed By: #### C MP, LIPID #### [facility] [address] [place] [address] Dr. Todd Phillip CO2 [Moles/Vol] 24.3 mmol/L Normal 21.0-32.0 [facility] Comment on above: Performed By: #### C MP, LIPID #### [facility] [address] [place] [address] Dr. Todd Phillip Creatinine [Mass/Vol] 0.88 mg/dL Normal 0.55-1.02 [facility] Comment on above: Performed By: #### C MP, LIPID #### [facility] [address] [place] [address] Dr. Todd Phillip EGFR-AF [place] >60 Normal >=60 [facility] Comment on above: Performed By: #### C MP, LIPID #### [facility] [address] [address] [address] Todd Phillip EGFR-NON AF [place] >60 Normal >=60 [facility] Comment on above: Performed By: #### C MP, LIPID #### [facility] [address] [address] [address] Todd Phillip Globulin (S) [Mass/Vol] 3.1 g/dL Normal [facility] Comment on above: Performed By: #### C MP, LIPID #### [facility] [address] [address] [address] Todd Phillip Glucose [Mass/Vol] 105 mg/dL Normal 74-106 [facility] Comment on above: Performed By: #### C MP, LIPID #### [facility] [address] [address] [address] Todd Phillip Potassium [Moles/Vol] 4.5 mmol/L Normal 3.5-5.1 [facility] Comment on above: Performed By: #### C MP, LIPID #### [facility] [address] [address] [address] Todd Phillip Protein [Mass/Vol] 6.6 g/dL Normal 6.4-8.2 [facility] Comment on above: Performed By: #### C MP, LIPID #### [facility] [address] [address] [address] Todd Phillip Sodium [Moles/Vol] 140 mmol/L Normal 136-145 [facility] Comment on above: Performed By: #### C MP, LIPID #### [facility] [address] [address] [address] Todd Phillip Urea nitrogen [Mass/Vol] 17.0 mg/dL Normal 7.0-18.0 [facility] Comment on above: Performed By: #### C MP, LIPID #### [facility] [address] [address] [address] Todd Phillip Urea nitrogen/Creatinine [Mass ratio] 19.3 mg/mg Normal [facility] Comment on above: Performed By: #### C MP, LIPID #### [facility] [address] [place] [address] Dr. Todd Phillip Cody 07-10-2020 L ---- Specimen: [id number] Received: 07/10/20 Status: TERRY Carrerosebastien Num: [id number] Spec Type: Surgical Subm Dr: Amadeo Uribe MD Tissues: A Stomach - Biopsy/Polyp (BX STOMACH) B Colon - Polyp (POLYP RECTUM) Procedures: HE Stain/4, Gross/Micro L4/2 Patient Age/Sex Location Account Attending Physician Goyo Michelle 64/F [id number] Amadeo Uribe MD SPEC NUM: [id number] RECD: 07/10/20 STATUS: TERRY CARREROSebastien NUM: [id number] BRET: 07/10/20- SUBM DR: Amadeo Uribe MD ENTERED: 07/10/20 [facility] DR: SPEC TYPE: Surgical DEPT: S ORDERED: HE Stain/4, Gross/Micro L4/2 ORDERED: HE Stain/4, Gross/Micro L4/2 Pathological Diagnosis A. Stomach, biopsy: - Chronic gastritis with lymphoid aggregates. - H. pylori stain is positive for microorganisms. B. Rectal polyp, polypectomy: - Mucosal prolapse polyp with chronic inflammation. Clinical Information Change in bowel habits, dyspepsia Gross Description A. Received in formalin labeled with the patient's name, number and biopsy stomach are 4 valdez tissue fragments, 0.3-0.4 cm. Entirely submitted in one cassette labeled A1. (BRAD/RubyJ) B. Received in formalin labeled with the patient's name, number and polyp rectum is a 0.5 cm sessile mucosal tissue fragment. The resection margin is inked blue and the fragment is bisected. Entirely submitted in one cassette labeled B1. (BRAD/YJ) Specimen: Received: 07/10/20 Status: TERRY Carrerosebastien Num: [id number] Spec Type: Surgical Subm Dr: Amadeo Uribe MD Tissues: A Stomach - Biopsy/Polyp (BX STOMACH) B Colon - Polyp (POLYP RECTUM) Procedures: HE Stain/4, Gross/Micro L4/2 Patient: Goyo Michelle [id number] (Continued) Specimen: Received: 07/10/20 (Continued) Signed (signature on file) Elaine Haines MD 07/11/20 1439 Specimen: Received: 07/10/20 Status: TERRY Sanchez Num: [id number] Spec Type: Surgical Subm Dr: Amadeo Uribe MD Tissues: A Stomach - Biopsy/Polyp (BX STOMACH) B Colon - Polyp (POLYP RECTUM) Procedures: HE Stain/4, Gross/Micro L4/2 Patient: Goyo Michelle [id number] (Continued) Specimen: [id number] Received: 07/10/20 (Continued) Microscopic Description A. Two glass slides with H E stained material and one IHC stained slide have been examined. The microscopic findings support the above pathologic diagnosis. B. Two glass slides with H E stained material have been examined. The microscopic findings support the above pathologic diagnosis. The use of one or more reagents in the above tests is regulated as an analyte specific reagent (ASR). The performance characteristics were determined by the Laboratory of [facility]. Immunohistochemistry assays have not been validated on decalcified tissue. Results should be interpreted with caution given the possibility of false negative results on decalcified specimens. They have not been cleared by the US Food and Drug Administration. The FDA has determined that such clearance or approval is not necessary. CPT Codes 57736?2, 96062 Specimen: [id number] Received: 07/10/20 Status: TERRY Sanchez Num: [id number] Spec Type: Surgical Subm Dr: Amadeo Uribe MD Tissues: A Stomach - Biopsy/Polyp (BX STOMACH) B Colon - Polyp (POLYP RECTUM) Procedures: HE Stain/4, Gross/Micro L4/2 Patient: Goyo Michelle [id number] (Continued) Signed (signature on file) Elaine Haines MD 07/11/20 1439 Normal [facility] SARS-CoV-2 (COVID-19) RNA ABHIJEET+probe Ql (Unsp spec) Negative Normal Negative [facility] Comment on above: Order Comment: Healt hcare Worker?: N Result Comment: Refe rence: Negative Testing for SARS-CoV-2 by RT-PCR This test was developed and its performance characteristics determined by [employer] ([employer]) and validated at the [facility]. This test has not been FDA cleared or approved. This test has been authorized by FDA under an Emergency Use Authorization (EUA). This test has been validated in accordance with the FDA's Guidance Document (Policy for Diagnostics Testing in Laboratories Certified to Perform High Complexity Testing under CLIA prior to Emergency Use Authorization for Coronavirus Disease-2019 during the Public Health Emergency) issued on June 29, 2019. This test is only authorized for the duration of time the declaration that circumstances exist justifying the authorization of the emergency use of in vitro diagnostic tests for detection of SARS-CoV-2 virus and/or diagnosis of COVID-19 infection under section 564(b)(1) of the Act, 21 U.S.C. 360bbb-3(b)(1), unless the authorization is terminated or revoked sooner. PERFORMED BY: [facility] [address] [place] [address] PATHOLOGIST SUPERVISOR NUT PROCESSING FERNANDO MONTES M.D. Performed By: #### C OVID-19 [facility] #### [place] [id number] [facility] COVID-19 Positive/Negativeon 07-08-2020 COVID-19 Positive/Negative Negative Negative [facility] Comment on above: Reference: NegativeT esting for SARS-CoV-2 by RT-PCRThis test was developed and its performance characteristics determined by [employer] ([employer]) and validated at the [facility]. This test has not been FDA cleared or approved. This test has been authorized by FDA under an Emergency Use Authorization (EUA). This test has been validated in accordance with the FDA's Guidance Document (Policy for Diagnostics Testing in Laboratories Certified to Perform High Complexity Testing under CLIA prior to Emergency Use Authorization for Coronavirus Disease-2019 during the Public Health Emergency) issued on June 29, 2019. This test is only authorized for the duration of time the declaration that circumstances exist justifying the authorization of the emergency use of in vitro diagnostic tests for detection of SARS-CoV-2 virus and/or diagnosis of COVID-19 infection under section 564(b)(1) of the Act, 21 U.S.C. 360bbb-3(b)(1), unless the authorization is terminated or revoked sooner. Otheron 07-08-2020 Coronavirus 2019 PCR Interp N/A [facility] Cardiovascular Lab Reporton 04-24-2020 Cardiovascular Lab Report [facility] Patient Name: Goyo Michelle MR #: [id number] [facility] Physician: Arun Weathers M.D. Department of Service Date: 04/24/2020 Medicine Birthdate: 1955 Division of Room #: CC Cardiology Adult Cardiovascular Services [facility] [address] [facility] [place], [place] [address] Cardiovascular Laboratory Report INDICATION: The patient is a 64-year-old woman who was evaluated in Cardiology Clinic by nurse practitioner, Markus Parikh, because of symptoms of chest pain and shortness of breath and a stress test showing ischemia in the anterior territory. She was referred for cardiac catheterization. PROCEDURES: 1. Access into the right internal jugular vein under ultrasound guidance. 2. Right heart catheterization. 3. Bilateral selective coronary angiography. METHOD: Procedure was explained to the patient with risks and benefits. She signed informed consent. She was brought to dental laboratory worker in a fasting state. The right neck area was prepped and draped in usual fashion. Using ultrasound guidance and micropuncture technique, the internal jugular vein was accessed. A 6-Brazilian x 11 cm sheath was placed. A 6-Brazilian Polk catheter was used for right catheterization with measurement of pressures and calculation of cardiac output using the estimated Maurice method. Polk catheter was removed. Access was obtained in the right radial artery using micropuncture technique and a 6-Brazilian x 11 cm Hydrophilic sheath was advanced. Modified Ash's test was favorable on the right. Bilateral selective coronary angiography was then performed using 6-Brazilian JL3.5 and JR5 diagnostic catheters. Initial catheter advancement over the brachial area was made feasible using an angled Glidewire. Catheters were removed. Procedure was concluded. A TR band was used for hemostasis in the right radial artery. The access sheath in the right internal jugular vein was removed and manual compression applied for hemostasis. She will be observed for 4 hours and then discharged to home. TOTAL FLUORO TIME: 3.52 minutes. TOTAL AIR KERMA: 355 mGy. TOTAL CONTRAST VOLUME: 20 mL. HEMODYNAMICS: RA 4. RV 33/3, 9. PA 32/6, mean 18. Pulmonary capillary wedge pressure 7. AO 115/72, mean 91. Cardiac output 5.93. Cardiac index 2.7. PA sat 72%. AO sat 97%. CORONARY ANGIOGRAPHY: This is a right dominant circulation. Left main: This arises from the left coronary cusp. It bifurcates into left anterior descending and circumflex vessels. The left main has minimal disease. Left anterior descending: This has minimal disease. Circumflex vessel: This has minimal disease. Right coronary artery: This arises from the right coronary cusp. It is a large and dominant vessel. It has a 30% to 40% ostial tubular stenosis, but no obstructive lesions. FINDINGS: 1. Mild single-vessel coronary artery disease with 30% to 40% ostial stenosis in the RCA and minimal disease in the left coronary system. 2. Normal filling pressures. 3. Normal pulmonary arterial pressures. 4. Preserved cardiac output and cardiac index. RECOMMENDATIONS: 1. Medical therapy for CAD with aspirin 81 mg daily and atorvastatin 20 mg daily. 2. Further investigations of symptoms of chest pain and shortness of breath as indicated. 3. Follow up in Cardiology Clinic. Electronically Signed by: Arun Weathers M.D. 04/25/2020 11:43 P Arun Weathers M.D. Date Dict: 04/24/2020/11:33 A/Arun Weathers M.D. Date Trans: 04/24/2020 12:28 P/susannah [id number] cc: Luis Enrique Pedraza M.D. [facility] [address] [facility] [address] Normal [facility] Vital Signs Date Time Vital Sign Value Performing Clinician Facility 05-23-2024 08:01-0500 Body height 170.2 cm Amber Gary MD Work Phone: [facility] 05-23-2024 08:01-0500 Body mass index (BMI) [Ratio] 40.1 kg/m2 Amber Gary MD Work Phone: [facility] 05-23-2024 08:01-0500 Body weight 116.12 kg Amber Gary MD Work Phone: [facility] 05-23-2024 08:01-0500 Diastolic blood pressure 69 mm[Hg] Amber Gary MD Work Phone: [facility] 05-23-2024 08:01-0500 Heart rate 71 /min Amber Gary MD Work Phone: [facility] 05-23-2024 08:01-0500 Systolic blood pressure 110 mm[Hg] Amber Gary MD Work Phone: [facility] 02-08-2024 10:03-0500 Body height 170.2 cm Rayna Hemmer PA Work Phone: [facility] 02-08-2024 10:03-0500 Body mass index (BMI) [Ratio] 38.84 kg/m2 Rayna Hemmer PA Work Phone: [facility] 02-08-2024 10:03-0500 Body weight 112.49 kg Rayna Hemmer PA Work Phone: [facility] 02-08-2024 10:03-0500 Diastolic blood pressure 76 mm[Hg] Rayna Hemmer PA Work Phone: [facility] 02-08-2024 10:03-0500 Heart rate 64 /min Rayna Hemmer PA Work Phone: [facility] 02-08-2024 10:03-0500 SaO2% (BldA) [Mass fraction] 94 % Rayna Hemmer PA Work Phone: [facility] 02-08-2024 10:03-0500 Systolic blood pressure 128 mm[Hg] Rayna Hemmer PA Work Phone: [facility] 12-20-2023 09:22-0400 Body mass index (BMI) [Ratio] 37.9 kg/m2 Dale Carrera MD Work Phone: [facility] 12-20-2023 09:22-0400 Body weight 109.77 kg Dale Carrera MD Work Phone: [facility] 05-05-2023 13:40-0500 Body mass index (BMI) [Ratio] 39.25 kg/m2 Rayna Hemmer PA Work Phone: [facility] 05-05-2023 13:40-0500 Body weight 113.67 kg Rayna Hemmer PA Work Phone: [facility] 05-05-2023 13:40-0500 Diastolic blood pressure 82 mm[Hg] Rayna Hemmer PA Work Phone: [facility] 05-05-2023 13:40-0500 Heart rate 70 /min Rayna Hemmer PA Work Phone: [facility] 05-05-2023 13:40-0500 Respiratory rate 18 /min Rayna Hemmer PA Work Phone: [facility] 05-05-2023 13:40-0500 SaO2% (BldA) [Mass fraction] 96 % Rayna Hemmer PA Work Phone: [facility] 05-05-2023 13:40-0500 Systolic blood pressure 136 mm[Hg] Rayna Hemmer PA Work Phone: [facility] 12-09-2022 14:30-0400 Body height 170.18 cm Booker De Pazeric Other [facility] Other 12-09-2022 14:30-0400 Body mass index (BMI) [Ratio] 38.68 kg/m2 Booker De Pazeric Other [facility] Other 12-09-2022 14:30-0400 Body temperature 97.2 [degF] Booker De Pazeric Other [facility] Other 12-09-2022 14:30-0400 Body weight 112.04 kg Booker Jing Other [facility] Other 12-09-2022 14:30-0400 Diastolic blood pressure 90 mm[Hg] Keanueb Ch Other [facility] Other 12-09-2022 14:30-0400 Respiratory rate 20 /min Booker Jing Other [facility] Other 12-09-2022 14:30-0400 SaO2% (BldA) [Mass fraction] 94 % Booker Ch Other [facility] Other 12-09-2022 14:30-0400 Systolic blood pressure 132 mm[Hg] Booker Ch Other [facility] Other Encounters Encounter Date Encounter Type Care Provider Facility Start: 06-02-2024 End: 06-02-2024 ambulatory [facility] Start: 05-24-2024 End: 05-24-2024 ambulatory AMBER TIMMIS Not Available Start: 05-23-2024 End: 05-23-2024 Doyle Gary MD Work Phone: [facility] Start: 05-23-2024 End: 05-23-2024 Doyle Gary MD Work Phone: [facility] Start: 05-23-2024 End: 05-23-2024 Office outpatient visit 25 minutes Amber Gary MD Work Phone: [facility] Comment on above: OME (otitis media wi th effusion), left (Primary Dx); JOSÉ (obstructive sleep apnea) Start: 05-23-2024 End: 05-23-2024 ambulatory AMBER H TIMMIS Not Available Start: 04-26-2024 End: 04-26-2024 ambulatory AMBER TIMMIS Not Available Start: 03-20-2024 End: 03-20-2024 ambulatory AMBER TIMMIS Not Available Start: 02-23-2024 End: 02-23-2024 ambulatory AMBER TIMMIS Not Available Start: 02-09-2024 End: 02-09-2024 ambulatory RAYNA AVILES Not Available Start: 02-08-2024 End: 02-08-2024 Bamboo josep Aviles PA Work Phone: [facility] Start: 02-08-2024 End: 02-08-2024 Bamboo josep Aviles PA Work Phone: [facility] Start: 02-08-2024 End: 02-08-2024 ambulatory RAYNA Hair HEMMER Not Available Start: 02-08-2024 End: 02-08-2024 Office outpatient visit 25 minutes Rayna M Sandeep PA Work Phone: [facility] Comment on above: Chronic bilateral lo w back pain without sciatica (Primary Dx); Abnormal uterine bleeding Start: 01-26-2024 End: 01-26-2024 ambulatory AMBER TIMMIS Not Available Start: 12-29-2023 End: 12-29-2023 ambulatory AMBER TIMMIS Not Available Start: 12-20-2023 End: 12-20-2023 Doyle Carrera MD Work Phone: [facility] Start: 12-20-2023 End: 12-20-2023 Doyle Carrera MD Work Phone: [facility] Start: 12-20-2023 End: 12-20-2023 Office outpatient visit 15 minutes Dale Carrera MD Work Phone: [facility] Comment on above: Severe persistent as thma without complication (CMS/HCC) (Primary Dx) Start: 12-20-2023 End: 12-20-2023 ambulatory DALE CARRERA Not Available Start: 12-08-2023 End: 12-08-2023 ambulatory [facility] Start: 12-01-2023 End: 12-01-2023 ambulatory AMBER TIMMIS Not Available Start: 11-09-2023 End: 11-09-2023 ambulatory RAYNA Hair HEMMER Not Available Start: 11-01-2023 End: 11-01-2023 ambulatory AMBER TIMMIS Not Available Start: 09-27-2023 End: 09-27-2023 ambulatory AMBER TIMMIS Not Available Start: 09-07-2023 End: 09-07-2023 ambulatory RAYNA Hair HEMMER Not Available Start: 08-30-2023 End: 08-30-2023 ambulatory AMBER TIMMIS Not Available Start: 07-28-2023 End: 07-28-2023 ambulatory AMBER TIMMIS Not Available Start: 06-24-2023 End: 06-24-2023 ambulatory DALE CARRERA Not Available Start: 06-23-2023 End: 06-23-2023 ambulatory AMBER GARY Not Available Start: 06-10-2023 End: 06-10-2023 ambulatory RAYNA AVILES Not Available Start: 06-09-2023 End: 09-28-2023 ambulatory RAYNA AVILES Facility:[facility] Start: 06-09-2023 End: 09-28-2023 Recurring RAYNA AVILES [facility] Start: 06-02-2023 End: 06-02-2023 ambulatory RAYNA AVILES Not Available Start: 06-01-2023 End: 06-01-2023 ambulatory RAYNA AVILES Not Available Start: 05-05-2023 Chart abstracting Rayna Anderson er PA Work Phone: [facility] Start: 05-05-2023 End: 05-05-2023 Patient encounter procedure Rayna Hair Bryceamalia KAMALA Work Phone: [facility] Comment on above: [facility], [facility] (Primary Dx); ACP (advance care planning); Encounter for screening mammogram for malignant neoplasm of breast; Estrogen deficiency; Sudden attack of loss of normal tone or strength (CMS/HCC); Coronary artery disease involving [place] coronary artery of [place] heart without angina pectoris (CMS/HCC); Primary hypertension (CMS/HCC); Stage 3a chronic kidney disease (HCC) (CMS/HCC); Impaired fasting glucose; Elevated ALT measurement; Mixed hyperlipidemia (CMS/HCC); Class 2 severe obesity with serious comorbidity and body mass index (BMI) of 39.0 to 39.9 in adult, unspecified obesity type (CMS/HCC); Sensorineural hearing loss (SNHL), bilateral; Localized edema; Dysfunction of both eustachian tubes; Bilateral tinnitus; Chronic fatigue; Seasonal allergic rhinitis due to pollen; Abnormal mammogram; Chronic myringitis, unspecified laterality; Chronic sinusitis, unspecified location; Osteoarthritis of sternoclavicular joint, right; Equinus contracture of right ankle; Enlargement of sternoclavicular joint, right; Arthritis, midfoot; Arthritis; ACOSTA (dyspnea on exertion); Severe persistent asthma without complication (CMS/HCC); Abnormal stress test; Other secondary pulmonary hypertension (CMS/HCC); Palpitations; Diverticulosis of colon; Chronic gastritis, presence of bleeding unspecified, unspecified gastritis type; Malignant neoplasm of kidney excluding renal pelvis, unspecified laterality (CMS/HCC); Other problems related to lifestyle; JOSÉ on CPAP; Acute non-recurrent maxillary sinusitis Start: 05-03-2023 Telephone encounter Dale brewster MD Work Phone: [facility] Start: 12-09-2022 End: 12-09-2022 ambulatory Booker Ch Other [facility] Other Start: 12-09-2022 Office outpatient ne w 45 minutes Booker Ch [facility] Start: 08-01-2022 End: 08-02-[address] DOCTOR TORRES Facility:[facility] Start: 01-05-2022 End: 01-06-[address] LUIS ENRIQUE PEDRAZA Facility:[facility] Start: 09-09-2021 End: 09-10-[address] RAYNA AVILES Facility:[facility] Start: 07-08-2020 End: 07-08-2020 Patient encounter procedure Amadeo Uribe -Pre-Surgical Testing Procedures Date Procedure Procedure Detail Performing Clinician Start: 06-10-2023 Mammography Dale carranza MD Work Phone: Start: 01-27-2022 Mammography Rayna hammond PA Work Phone: Start: 07-10-2020 Colonoscopy Rayna Anderson er PA Work Phone: Start: 03-29-1996 Procedure on kidney LUIS AVILES Comment on above: benign left tumor re moval Ligation of fallopian tube Ileana AVILES Plan of Treatment Date Care Activity Detail Author Start: 07-10-2030 Screening for malign ant neoplasm of colon [facility] Start: 02-07-2025 Pneumococcal Vaccine : 65+ Years (1 of 2 - PCV) Pneumococcal Vaccine: 65+ Years (1 of 2 - PCV) [facility] Comment on above: Postponed from 10/12 (Patient Refused) Start: 06-19-2024 End: 06-19-2024 Patient encounter procedure 06/19/2024 9:20 AM EDT Office Visit [facility] [address] [place] [phone] Dale Carrera MD [address] [place] [address] [facility] Start: 06-09-2024 Screening for malign ant neoplasm of breast Mammogram [facility] Start: 05-24-2024 End: 05-24-2024 Clinical Support 05/24/2024 9:00 AM EST Clinical Support [facility] [address] [place] [phone] [facility] Start: 05-23-2024 End: 05-23-2024 Patient encounter procedure 05/23/2024 8:00 AM EST Office Visit [facility] [address] [facility] [address] [place] [address] Amber Gary MD [address] [facility] [facility] [address] [place] [address] Arrived [facility] Comment on above: Arrived Start: 05-05-2024 Medicare Annual Wellness (AWV) Medicare Annual Wellness (AWV) [facility] Start: 04-04-2024 Influenza vaccination Influenza Vacc ine (#1) [facility] Comment on above: Postponed from 11/27 (Patient Refused) Start: 02-23-2024 End: 02-23-2024 Clinical Support 02/23/2024 9:15 AM EST Clinical Support [facility] [address] [place] [phone] [facility] Start: 12-29-2023 End: 12-29-2023 Clinical Support 12/29/2023 9:00 AM EDT Clinical Support [facility] [address] [place] [place] [phone] [facility] Start: 12-20-2023 End: 12-20-2023 Patient encounter procedure 12/20/2023 9:20 AM EDT Office [facility] [address] [place] [address] aDle Carrera MD [address] [place] [address] [facility] Comment on above: Arrived Start: 11-28-2023 Influenza vaccination Influenza Vacc ine (#1) [facility] Start: 09-23-2023 Screening for malign ant neoplasm of cervix [facility] Start: 06-24-2023 End: 06-24-2023 Patient encounter procedure 06/24/2023 2:40 PM EDT Office Visit [facility] [address] [place] [address] Dale Carrera MD [address] [facility] [place] [address] [facility] Start: 05-05-2023 End: 05-05-2024 CBC W Auto Differential panel - Blood CBC and differential Lab Routine Medicare annual wellness visit, initial Coronary artery disease involving kw[place] coronary artery of [place] heart without angina pectoris (CMS/HCC) Primary hypertension (CMS/HCC) Expected: 05/05/2023 (Approximate), Expires: 05/05/2024 [facility] Comment on above: Expected: 05/05/2023 (Approximate), Expires: 05/05/2024 Start: 05-05-2023 End: 05-05-2024 Comprehensive metabolic 2000 panel - Serum or Plasma Comprehensive metabolic panel Lab Routine Medicare annual wellness visit, initial Coronary artery disease involving [place] coronary artery of [place] heart without angina pectoris (CMS/HCC) Primary hypertension (CMS/HCC) Impaired fasting glucose Elevated ALT measurement Mixed hyperlipidemia (CMS/HCC) Localized edema Expected: 05/05/2023 (Approximate), Expires: 05/05/2024 [facility] Comment on above: Expected: 05/05/2023 (Approximate), Expires: 05/05/2024 Start: 05-05-2023 End: 05-05-2024 DXA Skeletal system Views for bone density DEXA bone density Imaging Routine Estrogen deficiency Expected: 05/05/2023, Expires: 05/05/2024 [facility] Comment on above: Expected: 05/05/2023 , Expires: 05/05/2024 Start: 05-05-2023 End: 05-05-2024 Hemoglobin A1c measurement Hemoglobin A1c Lab Routine Medicare annual wellness visit, initial Impaired fasting glucose Expected: 05/05/2023 (Approximate), Expires: 05/05/2024 [facility] Comment on above: Expected: 05/05/2023 (Approximate), Expires: 05/05/2024 Start: 05-05-2023 End: 05-05-2024 HEPATITIS C AB W/RFL RNS, PCR W/RFL GENOTYPE,LIPA HEPATITIS C AB W/RFL RNS, PCR W/RFL GENOTYPE,LIPA Lab Routine Medicare annual wellness visit, initial Other problems related to lifestyle Expected: 05/05/2023 (Approximate), Expires: 05/05/2024 [facility] Comment on above: Expected: 05/05/2023 (Approximate), Expires: 05/05/2024 Start: 05-05-2023 End: 05-05-2024 Lipid 1996 panel - Serum or Plasma Lipid panel Lab Routine Medicare annual wellness visit, initial Coronary artery disease involving [place] coronary artery of [place] heart without angina pectoris (CMS/HCC) Primary hypertension (CMS/HCC) Mixed hyperlipidemia (CMS/HCC) Expected: 05/05/2023 (Approximate), Expires: 05/05/2024 [facility] Comment on above: Expected: 05/05/2023 (Approximate), Expires: 05/05/2024 Start: 05-05-2023 End: 07-03-2024 MG Breast - bilateral Screening Bilateral screening mammogram Imaging Routine Encounter for screening mammogram for malignant neoplasm of breast Expected: 05/05/2023, Expires: 07/03/2024 [facility] Work Phone: Comment on above: Expected: 05/05/2023 , Expires: 07/03/2024 Start: 05-05-2023 End: 05-05-2023 Patient encounter procedure 05/05/2023 1:30 PM EST Office Visit [facility] [address] [facility] [address] [place] [address] Rayna Aviles PA [address] [facility] [address] [place] [address] [facility] Start: 01-27-2023 Screening for malign ant neoplasm of breast Mammogram [facility] Start: 11-27-2022 Influenza vaccination Influenza Vacc ine (#1) [facility] Start: 1976 Screening for malign ant neoplasm of cervix Pap Smear [facility] Start: 10-13-1963 Pneumococcal Vaccine : 65+ Years (1 - PCV) Pneumococcal Vaccine: 65+ Years (1 - PCV) [facility] Start: 10-13-1963 Pneumococcal Vaccine : 65+ Years (1 of 2 - PCV) Pneumococcal Vaccine: 65+ Years (1 of 2 - PCV) [facility] Start: 1955 Medicare Annual Wellness (AWV) Medicare Annual Wellness (AWV) [facility] Start: 1955 Screening for malign ant neoplasm of colon [facility] Immunizations Immunization Date Immunization Notes Care Provider Fa cility 07-02-2020 SARS-CoV-2 (COVID-19 ) mRNA-1273 vaccine RAYNA AVILES [facility] 07-02-2020 influenza virus vaccine, unspecified formulation Rayna WRAY Work Phone: [facility] NEGATED: Highlighted row has not occurred!07-11-2020 influenza virus vaccine, unspecified formulation RAYNA AVILES [facility] Payers Date Payer Category Payer Medicare [employer] MEDICARE UHC MEDICARE ADVANTAGE [id number] 2023-Present [address] [address] [place] [address] [id number] 2023 Medicare (Managed Care) 1.2. [id number] 2023 Medicare [id number] 2023 Private Health Insurance [id number] 2021 Unknown BCBS BCBS [id number] 2021-Present [phone] [address] [place] [address] [id number] .[id number] 2021 Blue Cross Blue Shield [id number] 2.16.840.1.788053.19 1959 Unknown [id number] 1957 Unknown [id number] 2.16.840.1.446643.3.579.2 .593 1957 Unknown [id number] 2.16.840.1.136810.3.579.2 .593 1957 Unknown [id number] 2.16.840.1.731014.3.579.2 .593 1957 Unknown [id number] 2.16.840.1.141000.3.579.2 .593 1957 Unknown [id number] 2.16.840.1.082675.3.579.2 .727 1957 Unknown [id number] 2.16.840.1.944229.3.579.2 .1259 1957 Unknown [id number] 2.16.840.1.841851.3.579.2 .1259 1957 Unknown [id number] 2.16.840.1.545181.3.579.2 .1259 1957 Unknown [id number] 2.16.840.1.984352.3.579.2 .1259 1957 Unknown [id number] 2.16.840.1.889005.3.579.2 .1259 1957 Unknown [id number] 2.16.840.1.936782.3.579.2 .1259 1958 Unknown [id number] 2.16.840.1.525716.3.579.2 .1258 1957 Unknown [id number] 2.16.840.1.335578.3.579.2 .1258 1957 Unknown [id number] 2.16.840.1.085043.3.579.2 .1258 1957 Unknown [id number] 2.16.840.1.586991.3.579.2 .1258 1957 Unknown [id number] 2.16.840.1.826851.3.579.2 .1258 1957 Unknown [id number] 2.16.840.1.383982.3.579.2 .1258 1957 Unknown [id number] 2.840.1.688193.3.579.2 .1258 1957 Unknown [id number] 2.16.840.1.071743.3.579.2 .1258 1957 Unknown [id number] 2.16.840.1.006238.3.579.2 .1258 1957 Unknown [id number] 2..840.1.197108.3.579.2 .1258 1957 Unknown [id number] 2.840.1.278393.3.579.2 .1258 1957 Unknown [id number] 2.16.840.1.643275.3.579.2 .1258 1957 Unknown [id number] 2.16.840.1.854815.3.579.2 .1258 1957 Unknown [id number] 2.16.840.1.968491.3.579.2 .1258 1957 Unknown [id number] 2.16.840.1.639657.3.579.2 .1258 1957 Unknown [id number] 2.16.840.1.615587.3.579.2 .1259 Medicare [id number] 2.16.840.1.838721.19 Self-pay Self Pay [id number] Unknown Self Pay [id number] Social History Date Type Detail Facility Tobacco smoking status NHIS Unknown if ever smoked [facility] Start: 1955 Sex Assigned At Female F [facility] Start: 04-21-2023 End: 05-23-2024 Sex Assigned At [place] [employer] Other Start: 07-11-2020 End: 12-28-2022 Tobacco smoking status NHIS Never smoked tobacco [facility] Start: 12-28-2022 Tobacco use and exposure Smokeless tobacco non-user [facility] Start: 05-05-2023 End: 05-23-2024 Alcohol intake Lifetime non-drinker (finding) [facility] Start: 04-21-2023 End: 05-23-2024 History of Social function [facility] Start: 05-05-2023 Alcohol Comment Caffeine: More than 4 cups per day, soda [facility] Start: 1955 Sex Assigned At Not on file [facility] Start: 12-28-2022 Alcohol Comment Caffeine: More than 4 cups per day [facility] Goals Date Patient Goal Desired Activity /State Clinical Notes 12-09-2022 to 06-02-2024 Amber Gary MD - 05/23/2024 8:00 AM KAMALA Rodriguez - 02/08/2024 10:00 AM Екатерина Carrera MD - 12/20/2023 9:20 AM KAMALA De Jesus - 05/05/2023 1:30 PM EST Note Date & Type Note Facility 06-02-2024 Note [facility] Subjective Goyo Michelle is a 68 y.o. year old female patient being seen for 6 mo follow up CAD, hyperlipidemia, and ACOSTA. No recent labs/imaging. Denies chest pain. Says her ACOSTA and palpitations are stable and unchanged. Denies LE edema. She isn't sure if she has hydrochlorothiazide or torsemide that she takes PRN. She has annual apt with PCP next week and will be having routine labs at that time. Patient Active Problem List Diagnosis Arthritis Obstructive sleep apnea syndrome Malignant neoplasm of kidney excluding renal pelvis (CMS/HCC) Shortness of breath at rest Coronary artery disease involving [place] coronary artery of [place] heart without angina pectoris Mixed hyperlipidemia ACOSTA (dyspnea on exertion) Allergic rhinitis, unspecified Body mass index (BMI) 38.0-38.9, adult Severe persistent asthma with (acute) exacerbation (CMS/HCC) Abnormal mammogram Abnormal stress test Arthritis, midfoot Atrophic vaginitis Bilateral tinnitus BiPAP (biphasic positive airway pressure) dependence Chronic fatigue Chronic cystitis Chronic tympanitis Contact with and (suspected) exposure to environmental tobacco smoke (acute) (chronic) Degeneration of intervertebral disc of lumbar region with discogenic back pain Diverticulosis of colon Dysfunction of both eustachian tubes Elevated ALT measurement Enlargement of sternoclavicular joint, right Equinus contracture of right ankle Impaired fasting glucose Levoscoliosis of lumbosacral spine Localized edema senior care current use of inhaled steroid Lumbar spondylosis Osteoarthritis of sternoclavicular joint, right Osteopenia of multiple sites Other secondary pulmonary hypertension (CMS/HCC) Palpitations Primary hypertension Sensorineural hearing loss (SNHL), bilateral Stage 3a chronic kidney disease (CMS/HCC) Sudden attack of loss of normal tone or strength (CMS/HCC) Family History Problem Relation Name Age of Onset Diabetes Mother No Known Problems Father Social History Tobacco Use Smoking status: Never Smokeless tobacco: Never Substance Use Topics Alcohol use: Not Currently Drug use: Never HPI Goyo is seen in follow-up. She is a 68-year-old woman who previously was evaluated in cardiology clinic because of symptoms of chest pain or shortness of breath and a stress test showing ischemia in the anterior territory. She underwent cardiac catheterization in March 2020 that showed mild single-vessel coronary disease with 30 to 40% ostial stenosis in the RCA and minimal disease in the left coronary system. At that time she had normal filling pressures and normal pulmonary arterial pressures. She was recommended medical therapy for coronary artery disease. She has had issues with statin intolerance and was on atorvastatin but that was stopped. She is now on simvastatin and ezetimibe. Echocardiogram in September 2022 showed normal ventricular function and mild mitral regurgitation. She also sees pulmonary service for COPD, obstructive sleep apnea and allergic rhinitis. Today she reports that she has occasional symptoms of palpitations lasting about 1-2 minutes at each time happening may be around once or twice a week. She has stable shortness of breath on exertion, NHYA class II-III. No symptoms of chest pain. No significant lower extremity edema currently. She was taking hydrochlorothiazide on an as-needed basis, but not anymore. Review of Systems Cardiovascular: Positive for dyspnea on exertion and palpitations. Respiratory: Positive for shortness of breath, sleep disturbances due to breathing and snoring. Musculoskeletal: Positive for back pain. All other systems reviewed and are negative. Objective Visit Vitals BP 144/82 (BP Location: Left arm, Patient Position: Sitting) Pulse 71 Ht 1.702 m (5' 7 ) Wt 115 kg (253 lb) SpO2 95% BMI 39.63 kg/m??? Smoking Status Never BSA 2.33 m??? Physical Exam Constitutional: Appearance: She is well-developed. She is obese. She is not ill-appearing. HENT: Head: Normocephalic and atraumatic. Nose: Nose normal. Eyes: General: No scleral icterus. Pupils: Pupils are equal, round, and reactive to light. Neck: Thyroid: No thyromegaly. Vascular: No JVD. Cardiovascular: Rate and Rhythm: Normal rate and regular rhythm. Pulses: Radial pulses are 2+ on the right side and 2+ on the left side. Heart sounds: Normal heart sounds. No murmur heard. No friction rub. No gallop. Pulmonary: Effort: Pulmonary effort is normal. No respiratory distress. Breath sounds: Normal breath sounds. No wheezing or rales. Chest: Chest wall: No tenderness. Abdominal: General: Bowel sounds are normal. There is no distension. Palpations: Abdomen is soft. Tenderness: There is no abdominal tenderness. Musculoskeletal: General: No swelling. Cervical back: Neck supple. Skin: General: Skin is warm and (more content not included)... [facility] 05-23-2024 History of Present illness Narrative Subjective Patient ID: Goyo Michelle is a 68 y.o. 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 Hearing seems decreased. CPAP machine failing. Needs a new RX for new machine. No sleep study in [facility] or [facility] Family History Problem Relation Name Age of Onset Breast cancer Mother Diabetes Mother Lung cancer Father Cancer Maternal Grandmother Active Ambulatory Problems Diagnosis Date Noted JOSÉ on CPAP 12/28/2022 Severe persistent asthma without complication (CMS/HCC) 04/21/2023 Mixed hyperlipidemia (CMS/HCC) 09/16/2022 Coronary artery disease involving kw[place]uk coronary artery of [place] heart without angina pectoris (CMS/HCC) 09/16/2022 Allergic rhinitis 04/30/2023 ACOSTA (dyspnea on exertion) 09/16/2022 Primary hypertension (CMS/HCC) 05/05/2023 Palpitations 05/05/2023 Abnormal mammogram 05/05/2023 Abnormal stress test 05/05/2023 Arthritis, midfoot 05/05/2023 Bilateral tinnitus 05/05/2023 BiPAP (biphasic positive airway pressure) dependence 05/05/2023 Chronic fatigue 05/05/2023 Chronic sinusitis 05/05/2023 Chronic tympanitis 05/05/2023 Diverticulosis of colon 05/05/2023 Dysfunction of both eustachian tubes 05/05/2023 Elevated ALT measurement 05/05/2023 Arthritis 04/19/2020 Enlargement of sternoclavicular joint, right 05/05/2023 Gastritis 05/05/2023 Equinus contracture of right ankle 05/05/2023 Impaired fasting glucose 05/05/2023 Localized edema 05/05/2023 Malignant neoplasm of kidney excluding renal pelvis (CMS/HCC) 08/01/2008 Osteoarthritis of sternoclavicular joint, right 05/05/2023 Other secondary pulmonary hypertension (CMS/HCC) 05/05/2023 Sensorineural hearing loss (SNHL), bilateral 05/05/2023 Stage 3a chronic kidney disease (HCC) (CMS/HCC) 05/05/2023 Sudden attack of loss of normal tone or strength (CMS/HCC) 05/05/2023 Osteopenia of multiple sites 06/01/2023 Class 2 severe obesity with serious comorbidity and body mass index (BMI) of 38.0 to 38.9 in adult (CMS/[facility]) 06/01/2023 Atrophic vaginitis 09/07/2023 Chronic cystitis 09/07/2023 Lumbar spondylosis 02/09/2024 Degeneration of intervertebral disc of lumbar region with discogenic back pain 02/09/2024 Levoscoliosis of lumbosacral spine 02/09/2024 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 JOSÉ (obstructive sleep apnea) Past Surgical History: Procedure Laterality Date CARDIAC CATHETERIZATION 04/24/2020 Cath Mild single vessel CAD 30-40% ostial stenosis in the RCA minimal coronary artery disease LAD EGD 07/10/2020 EGD w/ Biopsy, Colonoscopy w/ Polypectomy IMMUNOTHERAPY PRESCRIPTION Immunotherapy initiated;Disease:Allergies, environmental [place] PALATOPLASTY CLEFT PALATE MAJOR REVJ TUMOR EXCISION left kidney (benign) Allergies Allergen Reactions Other Trees, pollens Current Outpatient Medications on File Prior to Visit Medication Sig Dispense Refill albuterol HFA 90 mcg/act inhaler Inhale 2 puffs every 4 (four) hours if needed. Breztri Aerosphere 160-9-4.8 MCG/ACT aerosol cholecalciferol 50 MCG (1999 [place]) tablet Take 2,000 Units by mouth Daily estradiol (Estrace) 0.1 MG/GM vaginal cream Insert 1 g into the vagina 2 (two) times a week. ezetimibe (Zetia) 10 MG tablet Take 10 mg by mouth in the morning. loratadine (Claritin) 10 MG tablet Take by mouth meloxicam (Mobic) 15 MG tablet TAKE 1 TABLET BY MOUTH ONCE DAILY 90 tablet 3 metFORMIN XR (Glucophage-XR) 500 MG 24 hr tablet TAKE 1 TABLET BY MOUTH IN THE EVENING TAKE WITH MEALS DO NOT CRUSH, CHEW, OR SPLIT 90 tablet 3 simvastatin (Zocor) 20 MG tablet Take 20 mg by mouth at bedtime Tezepelumab-ekko (Tezspire) 210 MG/1.91ML solution prefilled syringe Inject 210 mg under the skin every 30 (thirty) days tiZANidine (Zanaflex) 4 MG tablet Take 1 tablet (4 mg) by mouth every 8 (eight) hours if needed for muscle spasms for up to 10 days 30 tablet 0 [DISCONTINUED] aspirin 81 MG EC tablet Take 81 mg by mouth 1 (one) time each day at the same time. [DISCONTINUED] metoprolol succinate XL (Toprol-XL) 25 MG 24 hr tablet Take 25 mg by mouth in the morning. No current facility-administered medications on file prior to visit. Objective Last Recorded Vitals Vitals: 05/23/24 0801 BP: 110/69 Pulse: 71 ENT Physical Exam Constitutional Appearance: patient appears well-developed, well-nourished and well-groomed, Communication/Voice: communication appropriate for developmental age; vocal quality normal; Ear Ear comments: RT myringosclerosis. LT retraction and serous effusion. Assessment/Plan Diagnoses and all orders for this visit: OME (otitis media with effusion), left - fluticasone (Flonase) 50 MCG/ACT nasal spray; Administer 2 sprays into each nostril Daily Shake gently. Before first use, prime pump. After use, clean tip and replace cap. JOSÉ (obstructive sleep apnea) Start flonase and check an audio. May need a tube No sleep study in many years. Needs a titration sleep study to get a new machine documented in this encounter [facility] 02-08-2024 History of Present illness Narrative Images from the original note were not included. Subjective Patient ID: Goyo Michelle is a 68 y.o. female who presents for Back Pain. Back Pain Patient presents for evaluation of low back problems. Symptoms have been present for YEARS and include pain in lower and mid back Initial inciting event: none. Alleviating factors identifiable by the patient are medication otc nsaids. Aggravating factors identifiable by the patient are standing and walking. previous work up: none. Symptoms do not go down her legs. States it is an occasional shooting pain that feels like it could drop her to her knees. Symptoms radiate across her low back. No numbness or tingling in her legs. No change in controlling bladder or bowels. Does see chiropractor with improvement in her neck, but no improvement in her low back. States the first time after she got her Tezspire shot in April she was passing clots that lasted for just under 24 hours, not sure if vaginal or bladder. Saw Dr. Clark and had a scope done, was told it was normal. Back Pain Pertinent negatives include no abdominal pain, chest pain or fever. Current Outpatient Medications on File Prior to Visit Medication Sig Dispense Refill albuterol HFA 90 mcg/act inhaler Inhale 2 puffs every 4 (four) hours if needed. aspirin 81 MG EC tablet Take 81 mg by mouth 1 (one) time each day at the same time. Breztri Aerosphere 160-9-4.8 MCG/ACT aerosol cholecalciferol 50 MCG (1999 [place]) tablet Take 2,000 Units by mouth Daily estradiol (Estrace) 0.1 MG/GM vaginal cream Insert 1 g into the vagina 2 (two) times a week. ezetimibe (Zetia) 10 MG tablet Take 10 mg by mouth in the morning. loratadine (Claritin) 10 MG tablet Take by mouth meloxicam (Mobic) 15 MG tablet TAKE 1 TABLET BY MOUTH ONCE DAILY 90 tablet 3 metFORMIN XR (Glucophage-XR) 500 MG 24 hr tablet Take 1 tablet (500 mg) by mouth in the evening. Take with meals Do not crush, chew, or split. 100 tablet 3 simvastatin (Zocor) 20 MG tablet Take 20 mg by mouth at bedtime Tezepelumab-ekko (Tezspire) 210 MG/1.91ML solution prefilled syringe Inject 210 mg under the skin every 30 (thirty) days [DISCONTINUED] fluticasone (Flonase) 50 MCG/ACT nasal spray Administer 2 sprays into each nostril 1 (one) time each day at the same time. metoprolol succinate XL (Toprol-XL) 25 MG 24 hr tablet Take 25 mg by mouth in the morning. [DISCONTINUED] calcium carbonate (Calcium 600) 600 MG tablet Take 1 tablet (600 mg) by mouth in the morning and 1 tablet (600 mg) in the evening. Take with meals. [DISCONTINUED] potassium chloride CR (KLOR-CON) 10 MEQ ER tablet TAKE 1 TABLET BY MOUTH ONCE A DAY *DO NOT CRUSH OR CHEW* 100 tablet 3 [DISCONTINUED] pravastatin (Pravachol) 10 MG tablet Take 10 mg by mouth in the morning. [DISCONTINUED] torsemide (Demadex) 10 MG tablet TAKE 1 TABLET (10 MG) BY MOUTH DAILY. 100 tablet 3 No current facility-administered medications on file prior to visit. I have reviewed and reconciled the history and medication list with the patient today. Allergies Allergen Reactions Other Trees, pollens Social History Tobacco Use Smoking status: Never Smokeless tobacco: Never Vaping Use Vaping status: Never Used Substance Use Topics Alcohol use: Never Comment: Caffeine: More than 4 cups per day, soda Drug use: Never Family History Problem Relation Name Age of Onset Breast cancer Mother Diabetes Mother Lung cancer Father Cancer Maternal Grandmother Past Medical History: Diagnosis Date Abnormal findings on esophagogastroduodenoscopy (EGD) 07/10/2020 EGD showed Gastritis, H. pylori Allergies 2009 Environmental Bilateral otitis media with effusion Bullous myringitis of left ear Chronic sinusitis Cleft palate ETD (Eustachian tube dysfunction), bilateral Exertional dyspnea 2014 Normal Cardiolite Stress, ECG and Exercise Test complete by Dr. Abbasi [facility] History of CT scan 06/2020 CT A/P diffuse hepatic steatosis, moderate colonic diverticulosis History of echocardiogram 10/06/2016 EF normal, mild Pulmonary HTN, mild Modleft atrial enlargement, mild tricuspid regurg History of echocardiogram 05/10/2020 Echo Normal Left Ventricular Function, No significant valvular dysfunction, Trace Pericardial effusion Kidney trouble Migraine (CMS/HCC) JOSÉ (obstructive sleep apnea) Dr. Lili Frank Past Surgical History: Procedure Laterality Date CARDIAC CATHETERIZATION 04/24/2020 Cath Mild single vessel CAD 30-40% ostial stenosis in the RCA minimal coronary artery disease LAD EGD 07/10/2020 EGD w/ Biopsy, Colonoscopy w/ Polypectomy IMMUNOTHERAPY PRESCRIPTION Immunotherapy initiated;Disease:Allergies, environmental [place] PALATOPLASTY CLEFT PALATE MAJOR REVJ TUMOR EXCISION left kidney (benign) Visit Vitals BP 128/76 Pulse 64 Ht 5' 7 Wt 248 lb SpO2 94% BMI 38.84 kg/m Smoking Status Never BSA 2.3 m Review of Systems Constitutional: Negative for chills, fatigue and fever. Respiratory: Negative for cough, shortness of breath and wheezing. Cardiovascular: Negative for chest pain, palpitations and leg swelling. Gastrointestinal: Negative for abdominal pain, constipation, diarrhea, nausea and vomiting. Musculoskeletal: Positive for back pain. Skin: Negative for rash. Objective Physical Exam Constitutional: General: She is not in acute distress. Appearance: She is well-developed. She is obese. Comments: Very pleasant HENT: Head: Normocephalic and atraumatic. Eyes: General: No scleral icterus. Conjunctiva/sclera: Conjunctivae normal. Cardiovascular: Rate and Rhythm: Normal rate and regular rhythm. Heart sounds: Normal heart sounds. No murmur heard. Pulmonary: Effort: Pulmonary effort is normal. No respiratory distress. Breath sounds: Normal breath sounds. No wheezing, rhonchi or rales. Musculoskeletal: Lumbar back: Spasms, tenderness and bony tenderness (Lumbar) present. Normal range of motion. Negative right straight leg raise test and negative left straight leg raise test. Comments: SI joints non-tender Skin: General: Skin is warm and dry. Neurological: General: No focal deficit present. Mental Status: She is alert and oriented to person, place, and time. Sensory: No sensory deficit. Motor: No weakness. Gait: Gait normal. Comments: Pt did notice temporary tingling in her left foot during strength portion of exam, but it resolved immediately after Psychiatric: Mood and Affect: Mood normal. Behavior: Behavior normal. Assessment/Plan Diagnoses and all orders for this visit: Chronic bilateral low back pain without sciatica - XR lumbar spine 4+ views w flexion extension; Future - predniSONE (Deltasone) 10 MG tablet; Take 1 tablet (10 mg) by mouth 3 (three) times a day for 3 days, THEN 1 tablet (10 mg) 2 (two) times a day for 3 days, THEN 1 tablet (10 mg) Daily for 3 days. - tiZANidine (Zanaflex) 4 MG tablet; Take 1 tablet (4 mg) by mouth every 8 (eight) hours if needed for muscle spasms for up to 10 days Start the above medications as directed. Advised of potential side effects of the steroid. Patient is to take the steroid with food. Do not take any NSAIDs while on Prednisone, Tylenol ok prn. Hold Meloxicam while on steroid. Can take the Tizanidine as needed, cautioned it may cause drowsiness. Due to duration of symptoms, will obtain x-rays for further evaluation at this time. Pt referral may be appropriate in the future. Abnormal uterine bleeding This was one episode in April of this year. No further episodes sense then. Advised her to contact the office should this recur as it would warrant further work up, ie Pelvic US. Follow up in about 3 months (around 05/08/2024) for Medicare Wellness Visit, Fasting Labs. documented in this encounter [facility] 12-20-2023 History of Present illness Narrative Goyo Michelle returns to the office today follow-up assessment for severe persistent asthma. Asthma control test in the office today is 19. She has been using Breztri BID and Tezspire every 4 weeks. She has no side effects from these meds. She feels the Tezspire has been extremely helpful for her symptoms. She had some recent weight gain she feels from fast food. EXAM The patient appears comfortable in the office today. Lungs are clear to auscultation bilaterally. The oral mucosa is pink and healthy without any lesions or ulcers. The palate elevates in the midline. The nasal mucosa is pink and healthy. There is no epistaxis mucopus or nasal polyposis noted. The nasal septum is approximately in the midline. The skin is clear of any lesions, excoriations, or erythema. IMPRESSION: Severe persistent asthma - continue Tezspire and breztri. Work on weight loss and diet. No refills. 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 Follow-up 6 months or sooner if problems arise. documented in this encounter [facility] 12-08-2023 Note Lipid abnormalities are uncontrolled in setting of CAD. LDL remains > 70 and she has been intolerant of lipitor and pravastatin r/t myalgias in the past- therefore will start zorcor and if intolerant of this statin she will most likely need to start PCSK9. [facility] 12-08-2023 Note Coronary artery dise ase is stable without any concerning symptoms Continue GDMT- toprol, and aspirin She is intolerant of pravastatin and has stopped taking this with improvement of symptoms, she was also intolerant of lipitor- therefore will try zocor 20 mg daily and d/w pt to stop zocor for any myalgia symptoms. If she is intolerant to this statin I d/w her that next she will need to start PCSK9- repatha or pralulent injectable for HPL management with CAD. continue risk factor modifications- heart healthy diet, regular exercise as tolerated and continue all medications. [facility] 12-08-2023 Note Pt is here for a six month follow up. Not taking Pravastatin due to legs cramping. Review of Systems Constitutional: Positive for night sweats. Cardiovascular: Positive for dyspnea on exertion and leg swelling (intermittent). Palpitations: once in awhile . Respiratory: Positive for shortness of breath, sleep disturbances due to breathing and snoring. Musculoskeletal: Positive for back pain. All other systems reviewed and are negative. [facility] 12-08-2023 Note [facility] CARDIOLOGY PROGR ESS NOTE HPI: Goyo Michelle is a 68 y.o. female here for routine F/U HPI 68 yo female patient being seen for 6 mo follow up CAD, hyperlipidemia, and ACOSTA. Pt is here for a six month follow up. Not taking Pravastatin due to legs cramping. States that PCP dc'd hydrochlorothiazide and started torsemide and potassium prn for edema and water retention. She took short regime of keflex for cellulitis of RLE and this has completely resolved. Denied fever, Chest pain, orthopnea, or weight gain. States SOB is no worse than typical. Review of Systems Constitutional: Positive for night sweats. Cardiovascular: Positive for dyspnea on exertion and leg swelling (intermittent). Palpitations: once in awhile . Respiratory: Positive for shortness of breath, sleep disturbances due to breathing and snoring. Musculoskeletal: Positive for back pain. All other systems reviewed and are negative. Previous HPI per Dr Weathers HPI Goyo is seen in follow-up. She is a 67-year-old woman who previously was evaluated in cardiology clinic because of symptoms of chest pain or shortness of breath and a stress test showing ischemia in the anterior territory. She underwent cardiac catheterization in March 2020 that showed mild single-vessel coronary disease with 30 to 40% ostial stenosis in the RCA and minimal disease in the left coronary system. At that time she had normal filling pressures and normal pulm anterior pressures. She was recommended medical therapy for coronary artery disease. She has had issues with statin intolerance and was on atorvastatin but that was stopped. Most recent echocardiogram in September 2022 showed normal ventricular function and mild mitral regurgitation. She also sees pulmonary service for COPD, obstructive sleep apnea and allergic rhinitis. Today she reports that she has occasional symptoms of palpitations lasting about 1 minute at each time happening may be around once a week. She has stable shortness of breath on exertion. No significant symptoms of chest pain. No significant lower extremity edema currently. She is taking hydrochlorothiazide on an as-needed basis. Currently she is not on any lipid therapy. Visit Vitals BP 128/76 (BP Location: Left wrist, Patient Position: Sitting) Pulse 59 Ht 1.702 m (5' 7 ) Wt 111 kg (244 lb) SpO2 94% BMI 38.22 kg/m??? Smoking Status Never BSA 2.29 m??? No Known Allergies Medications: Current Outpatient Medications on File Prior to Visit Medication Sig Dispense Refill aspirin 81 mg EC tablet Take 81 mg by mouth in the morning. Breztri Aerosphere 160-9-4.8 mcg/actuation HFA aerosol inhaler ezetimibe (Zetia) 10 mg tablet Take 1 tablet (10 mg) by mouth in the morning. 90 tablet 3 fluticasone (Flonase) 50 mcg/actuation nasal spray 1 (one) time each day at the same time. hydroCHLOROthiazide (HYDRODiuril) 25 mg tablet if needed. meloxicam (Mobic) 15 mg tablet meloxicam 15 mg tablet metoprolol succinate XL (Toprol-XL) 25 mg 24 hr tablet TAKE 1 TABLET BY MOUTH IN THE MORNING 90 tablet 3 nitroglycerin (Nitrostat) 0.4 mg SL tablet nitroglycerin 0.[address] 1 tablet as needed by sublingual route as needed. take 1 tablet SL for chest pain, may repeat every 5 minutes if chest pain does not resolve. Max of 3 tablets- if still having chest pain call 911 [DISCONTINUED] blood pressure test kit-large kit 1 kit once daily as directed. (Patient not taking: Reported on 12/08/2023) 1 kit 0 [DISCONTINUED] pravastatin (Pravachol) 10 mg tablet Take 1 tablet (10 mg) by mouth in the morning. (Patient not taking: Reported on 12/08/2023) 90 tablet 3 No current facility-administered medications on file prior to visit. Physical Exam: Constitutional: Appearance: Normal appearance. Without apparent distress, obese HENT: Head: Normocephalic and atraumatic. Nose: Nose normal. Mouth/Throat: Mouth: Mucous membranes are moist. Eyes: Extraocular Movements: Extraocular movements intact. Conjunctiva/sclera: Conjunctivae normal. Neck: Vascular: No JVD. Cardiovascular: Rate and Rhythm: Normal rate and regular rhythm. Pulses: Dorsalis pedis pulses are 3 on the right side and 3on the left side. Posterior tibial pulses are 3 on the right side and 3 on the left side. Heart sounds: Normal heart sounds, S1 normal and S2 normal. Pulmonary: Effort: Pulmonary effort is normal. Breath sounds: Normal breath sounds. Abdominal: General: Bowel sounds are normal. Palpations: Abdomen is soft. Musculoskeletal: General: Normal range of motion. Cervical back: Normal range of motion. Right lower leg: No edema. Left lower leg: No edema. Skin: General: Skin is warm and dry. Capillary Refill: Capillary refill takes less than 2 seconds. Neurological: General: No focal deficit present. Mental Status: She is alert and oriented to person, place, and time. Psychiatric: Mood and Affect (more content not included)... [facility] 05-05-2023 History of Present illness Narrative Images from the original note were not included. Subjective : Chief Complaint: Goyo Michelle is an 67 y.o. female here for an annual wellness visit. C/o sinus symptoms x 1 week. I have reviewed and reconciled the medication list with the patient today. Current Outpatient Medications on File Prior to Visit Medication Sig Dispense Refill ezetimibe (Zetia) 10 MG tablet Take 10 mg by mouth in the morning. pravastatin (Pravachol) 10 MG tablet Take 10 mg by mouth in the morning. albuterol HFA 90 mcg/act inhaler Inhale 2 puffs every 4 (four) hours if needed. aspirin 81 MG EC tablet Take 81 mg by mouth 1 (one) time each day at the same time. Breztri Aerosphere 160-9-4.8 MCG/ACT aerosol estradiol (Estrace) 0.1 MG/GM vaginal cream Insert 1 g into the vagina 2 (two) times a week. fluticasone (Flonase) 50 MCG/ACT nasal spray Administer 2 sprays into each nostril 1 (one) time each day at the same time. hydroCHLOROthiazide (HYDRODiuril) 25 MG tablet Take 25 mg by mouth in the morning. loratadine (Claritin) 10 MG tablet Take by mouth meloxicam (Mobic) 15 MG tablet TAKE 1 TABLET BY MOUTH ONCE DAILY 90 tablet 3 metoprolol succinate XL (Toprol-XL) 25 MG 24 hr tablet Take 25 mg by mouth in the morning. [DISCONTINUED] atorvastatin (Lipitor) 40 MG tablet Take 40 mg by mouth in the morning. No current facility-administered medications on file prior to visit. Allergies Allergen Reactions Other Trees, pollens Social History Tobacco Use Smoking status: Never Smokeless tobacco: Never Substance Use Topics Alcohol use: Never Comment: Caffeine: More than 4 cups per day, soda Drug use: Never Family History Problem Relation Name Age of Onset Breast cancer Mother Diabetes Mother Lung cancer Father Cancer Maternal Grandmother Past Medical History: Diagnosis Date Abnormal findings on esophagogastroduodenoscopy (EGD) 07/10/2020 EGD showed Gastritis, H. pylori Allergies 2009 Environmental Bilateral otitis media with effusion Bullous myringitis of left ear Chronic sinusitis Cleft palate ETD (Eustachian tube dysfunction), bilateral Exertional dyspnea 2014 Normal Cardiolite Stress, ECG and Exercise Test complete by Dr. Abbasi [facility] History of CT scan 06/2020 CT A/P diffuse hepatic steatosis, moderate colonic diverticulosis History of echocardiogram 10/06/2016 EF normal, mild Pulmonary HTN, mild Modleft atrial enlargement, mild tricuspid regurg History of echocardiogram 05/10/2020 Echo Normal Left Ventricular Function, No significant valvular dysfunction, Trace Pericardial effusion Kidney trouble Migraine (CMS/HCC) JOSÉ (obstructive sleep apnea) Dr. Lili Frank Past Surgical History: Procedure Laterality Date CARDIAC CATHETERIZATION 04/24/2020 Cath Mild single vessel CAD 30-40% ostial stenosis in the RCA minimal coronary artery disease LAD EGD 07/10/2020 EGD w/ Biopsy, Colonoscopy w/ Polypectomy IMMUNOTHERAPY PRESCRIPTION Immunotherapy initiated;Disease:Allergies, environmental [place] PALATOPLASTY CLEFT PALATE MAJOR REVJ TUMOR EXCISION left kidney (benign) Review of Systems Constitutional: Negative for chills, fatigue and fever. HENT: Positive for congestion, rhinorrhea, sinus pressure, sinus pain and sneezing. Negative for ear pain and sore throat. Eyes: Negative for pain, discharge and visual disturbance. Respiratory: Negative for cough, shortness of breath and wheezing. Cardiovascular: Negative for chest pain, palpitations and leg swelling. Gastrointestinal: Negative for abdominal pain, constipation, diarrhea, nausea and vomiting. Genitourinary: Negative for difficulty urinating, dysuria and frequency. Musculoskeletal: Negative for arthralgias and back pain. Skin: Negative for rash. Neurological: Negative for dizziness and numbness. Psychiatric/Behavioral: Negative for sleep disturbance. The patient is not nervous/anxious. List of current healthcare providers: Patient Care Team: Luis Enrique Pedraza MD as PCP - General (Family Medicine) Medicare Annual Visit Over the past 2 weeks, how often have you been bothered by any of the following problems? Little interest or pleasure in doing things: Not at all Feeling down, depressed, or hopeless: Not at all Patient Health Questionnaire-2 Score: 0 Over the past 2 weeks, how often have you been bothered by any of the following problems? Trouble falling or staying asleep, or sleeping too much: Not at all Feeling tired or having little energy: Not at all Poor appetite or overeating: Not at all Feeling bad about yourself - or that you are a failure or have let yourself or your family down: Not at all Trouble concentrating on things, such as reading the newspaper or watching television: Not at all Moving or speaking so slowly that other people could have noticed? Or the opposite - being so fidgety or restless that you have been moving around a lot more than usual.: Not at all Thoughts that you would be better off or hurting yourself in some way: Not at all Patient Health Questionnaire-9 Score: 0 [place] Fall Risk History of Falling, Immediate or Within 3 Months: No Health Risk Assessment Form Do you need help eating, bathing, using the toilet, dressing, or getting around your home?: No Can you prepare your own meals?: Yes Can you do your own housework without help?: Yes Can you shop for groceries or clothes without help?: Yes Do you exercise for about 20 minutes 3 or more days a week?: No How confident are you that you can control and manage most of your health problems?: Very confident Can you mange your money, credit cards and accounts, pay bills and taxes?: Yes Vision Screening: Yes, no gross abnormalities Hearing Screening: Yes, no gross abnormalities Cognitive Screening Self Assessment: No overt cognitive deficiency is apparent by direct observation Three Word Registration: Banana, [place], Chair Clock Drawing: Normal Clock - 2 Three Word Recall: All 3 words correct - 3 Total Score (0-5 Points): 5 Pain Assessment Pain Score: 0 - No pain Advance Care Planning Do you have a living will?: Yes Do you have a medical power of nursing faculty?: Yes Objective : BP 136/82 Pulse 70 Resp 18 Wt 250 lb 9.6 oz SpO2 96% BMI 39.25 kg/m No results found. Physical Exam Constitutional: General: She is not in acute distress. Appearance: Normal appearance. She is well-developed. HENT: Head: Normocephalic and atraumatic. Right Ear: Tympanic membrane and ear canal normal. Left Ear: Tympanic membrane and ear canal normal. Nose: Congestion and rhinorrhea present. Right Turbinates: Swollen. Left Turbinates: Swollen. Right Sinus: Maxillary sinus tenderness present. Left Sinus: Maxillary sinus tenderness present. Mouth/Throat: Mouth: Mucous membranes are moist. Pharynx: Posterior oropharyngeal erythema present. Comments: PND noted Eyes: General: No scleral icterus. Extraocular Movements: Extraocular movements intact. Conjunctiva/sclera: Conjunctivae normal. Pupils: Pupils are equal, round, and reactive to light. Neck: Vascular: No carotid bruit. Cardiovascular: Rate and Rhythm: Normal rate and regular rhythm. Heart sounds: Normal heart sounds. No murmur heard. Pulmonary: Effort: Pulmonary effort is normal. No respiratory distress. Breath sounds: Normal breath sounds. No wheezing, rhonchi or rales. Abdominal: General: Bowel sounds are normal. There is no distension. Palpations: Abdomen is soft. Tenderness: There is no abdominal tenderness. There is no guarding. Musculoskeletal: General: No swelling or deformity. Normal range of motion. Cervical back: Normal range of motion and neck supple. No tenderness. Lymphadenopathy: Cervical: No cervical adenopathy. Skin: General: Skin is warm and dry. Capillary Refill: Capillary refill takes less than 2 seconds. Findings: No rash. Neurological: General: No focal deficit present. Mental Status: She is alert and oriented to person, place, and time. Cranial Nerves: No cranial nerve deficit. Sensory: No sensory deficit. Motor: No weakness. Gait: Gait normal. Deep Tendon Reflexes: Reflexes normal. Psychiatric: Mood and Affect: Mood normal. Behavior: Behavior normal. Thought Content: Thought content normal. Judgment: Judgment normal. Assessment/Plan : The following health maintenance schedule was reviewed with the patient and provided in printed form in the after visit summary: Health Maintenance Topic Date Due Medicare Annual Wellness (AWV) Never done Pneumococcal Vaccine: 65+ Years (1 - PCV) Never done Influenza Vaccine (1) 11/27/2022 Mammogram 01/27/2023 Cervical Cancer Screening 09/23/2023 Colorectal Cancer Screening 07/10/2030 Advance Care Planning Patient has ACP in place. Orders Placed This Encounter Procedures Bilateral screening mammogram Standing Status: Future Number of Occurrences: 1 Standing Expiration Date: 07/03/2024 Order Specific Question: Reason for exam: Answer: screening DEXA bone density Standing Status: Future Standing Expiration Date: 05/05/2024 Order Specific Question: Reason for exam: Answer: screening CBC and differential Standing Status: Future Number of Occurrences: 1 Standing Expiration Date: 05/05/2024 Order Specific Question: Print requisition? Answer: No Comprehensive metabolic panel Standing Status: Future Number of Occurrences: 1 Standing Expiration Date: 05/05/2024 Order Specific Question: Print requisition? Answer: No Hemoglobin A1c Standing Status: Future Number of Occurrences: 1 Standing Expiration Date: 05/05/2024 Order Specific Question: Print requisition? Answer: No Lipid panel Standing Status: Future Number of Occurrences: 1 Standing Expiration Date: 05/05/2024 HEPATITIS C AB W/RFL RNS, PCR W/RFL GENOTYPE,LIPA Standing Status: Future Number of Occurrences: 1 Standing Expiration Date: 05/05/2024 Order Specific Question: Print requisition? Answer: No 1. Medicare annual wellness visit, initial Reviewed all relevant preventative screenings with the patient in detail. Medicare Wellness form completed and will be scanned into patient's chart. All needed testing was ordered. Will continue with yearly Medicare Wellness exams. ECG completed in the office today and showed sinus rhythm with first degree AV block. - CBC and differential - Comprehensive metabolic panel - Hemoglobin A1c - Lipid panel - HEPATITIS C AB W/RFL RNS, PCR W/RFL GENOTYPE,LIPA 2. ACP (advance care planning) Patient willing to discuss ACP. Pt has Living Will and DPOA in place. 3. Encounter for screening mammogram for malignant neoplasm of breast Provided pt with order for updated Mammogram. Continue routine screenings. - Bilateral screening mammogram 4. Estrogen deficiency Provided pt with order for updated DEXA. Continue routine screenings. - DEXA bone density; Future 5. Sudden attack of loss of normal tone or strength (CMS/HCC) Denies current complaints. Will continue to monitor. 6. Coronary artery disease involving [place] coronary artery of [place] heart without angina pectoris (CMS/HCC) The patient is seeing a hospital medical assistant for this condition, treatment is deferred to that specialist. Correspondence from that specialist and any available testing were reviewed during today's visit. - CBC and differential - Comprehensive metabolic panel - Lipid panel 7. Primary hypertension (CMS/HCC) The patient is seeing a hospital medical assistant for this condition, treatment is deferred to that specialist. Correspondence from that specialist and any available testing were reviewed during today's visit. - CBC and differential - Comprehensive metabolic panel - Lipid panel 8. Stage 3a chronic kidney disease (HCC) (CMS/HCC) This is a chronic medical condition that is stable since last assessment. No changes in treatment are suggested at this time. Will continue to monitor with routine labs. 9. Impaired fasting glucose This is a chronic medical condition that is stable since last assessment. No changes in treatment are suggested at this time. Will continue to monitor with routine labs. - Comprehensive metabolic panel - Hemoglobin A1c 10. Elevated ALT measurement This is a chronic medical condition that is stable since last assessment. No changes in treatment are suggested at this time. Will continue to monitor with routine labs. - Comprehensive metabolic panel 11. Mixed hyperlipidemia (CMS/HCC) This is a chronic medical condition that is stable since last assessment. No changes in treatment are suggested at this time. Will continue to monitor with routine labs. - Comprehensive metabolic panel - Lipid panel 12. Class 2 severe obesity with serious comorbidity and body mass index (BMI) of 39.0 to 39.9 in adult, unspecified obesity type (CMS/HCC) Encouraged portion control, decrease simple sugars and carbohydrates, gradually increase activity level. Aim for gradual steady weight loss. 13. Sensorineural hearing loss (SNHL), bilateral The patient is seeing a hospital medical assistant for this condition, treatment is deferred to that specialist. Correspondence from that specialist and any available testing were reviewed during today's visit. 14. Localized edema This is a chronic medical condition that is stable since last assessment. No changes in treatment are suggested at this time. - Comprehensive metabolic panel 15. Dysfunction of both eustachian tubes The patient is seeing a hospital medical assistant for this condition, treatment is deferred to that specialist. Correspondence from that specialist and any available testing were reviewed during today's visit. 16. Bilateral tinnitus The patient is seeing a hospital medical assistant for this condition, treatment is deferred to that specialist. Correspondence from that specialist and any available testing were reviewed during today's visit. 17. Chronic fatigue This is a chronic medical condition that is stable since last assessment. No changes in treatment are suggested at this time. 18. Seasonal allergic rhinitis due to pollen This is a chronic medical condition that is stable since last assessment. No changes in treatment are suggested at this time. 19. Abnormal mammogram Monitoring routinely. 20. Chronic myringitis, unspecified laterality The patient is seeing a hospital medical assistant for this condition, treatment is deferred to that specialist. Correspondence from that specialist and any available testing were reviewed during today's visit. 21. Chronic sinusitis, unspecified location Acute symptoms today. See treatment plan below. 22. Osteoarthritis of sternoclavicular joint, right This is a chronic medical condition that is stable since last assessment. No changes in treatment are suggested at this time. 23. Equinus contracture of right ankle This is a chronic medical condition that is stable since last assessment. No changes in treatment are suggested at this time. 24. Enlargement of sternoclavicular joint, right This is a chronic medical condition that is stable since last assessment. No changes in treatment are suggested at this time. 25. Arthritis, midfoot This is a chronic medical condition that is stable since last assessment. No changes in treatment are suggested at this time. 26. Arthritis This is a chronic medical condition that is stable since last assessment. No changes in treatment are suggested at this time. 27. ACOSTA (dyspnea on exertion) The patient is seeing a hospital medical assistant for this condition, treatment is deferred to that specialist. Correspondence from that specialist and any available testing were reviewed during today's visit. 28. Severe persistent asthma without complication (CMS/HCC) The patient is seeing a hospital medical assistant for this condition, treatment is deferred to that specialist. Correspondence from that specialist and any available testing were reviewed during today's visit. 29. Abnormal stress test The patient is seeing a hospital medical assistant for this condition, treatment is deferred to that specialist. Correspondence from that specialist and any available testing were reviewed during today's visit. 30. Other secondary pulmonary hypertension (CMS/HCC) The patient is seeing a hospital medical assistant for this condition, treatment is deferred to that specialist. Correspondence from that specialist and any available testing were reviewed during today's visit. 31. Palpitations The patient is seeing a hospital medical assistant for this condition, treatment is deferred to that specialist. Correspondence from that specialist and any available testing were reviewed during today's visit. 32. Diverticulosis of colon This is a chronic medical condition that is stable since last assessment. No changes in treatment are suggested at this time. 33. Chronic gastritis, presence of bleeding unspecified, unspecified gastritis type This is a chronic medical condition that is stable since last assessment. No changes in treatment are suggested at this time. 34. Malignant neoplasm of kidney excluding renal pelvis, unspecified laterality (CMS/HCC) The patient is seeing a hospital medical assistant for this condition, treatment is deferred to that specialist. Correspondence from that specialist and any available testing were reviewed during today's visit. 35. Other problems related to lifestyle Patient was born in 1956. She is agreeable to Hep C screening. - HEPATITIS C AB W/RFL RNS, PCR W/RFL GENOTYPE,LIPA 36. JOSÉ on CPAP This is a chronic medical condition that is stable since last assessment. No changes in treatment are suggested at this time. Compliant with use and perceives benefit. 37. Acute non-recurrent maxillary sinusitis Start the above as directed. Reviewed potential s/e with patient. Encouraged probiotic while on antibiotic. Increase water intake, get plenty of rest. Follow up if no improvement in one week. - amoxicillin (Amoxil) 875 MG tablet; Take 1 tablet (875 mg) by mouth in the morning and 1 tablet (875 mg) before bedtime. Do all this for 7 days. Dispense: 14 tablet; Refill: 0 Follow up in about 1 year (around 05/05/2024) for Medicare Wellness Visit. Electronically signed by Rayna Aviles PA-C on May 05, 2023 documented in this encounter [facility] 12-09-2022 Evaluation note Encounter Date Diagnosis Assessment Notes Nov, Mild persistent asthma, unspecified whether complicated (ICD-10 - J45.30) Nov, Obstructive sleep apnea (ICD-10 - G47.33) Continue regular use of CPAP, recommended aggressive weight loss Nov, Pulmonary hypertension (ICD-10 - I27.20) [facility] Other Evaluation + Plan note No data available [facility] this [facility] Medicare annual wellness visit, initial- Primary ACP (advance care planning) Other specified counseling Encounter for screening mammogram for malignant neoplasm of breast Estrogen deficiency Other ovarian failure Sudden attack of loss of normal tone or strength (CMS/HCC) Generalized nonconvulsive epilepsy without mention of intractable epilepsy Coronary artery disease involving [place] coronary artery of [place] heart without angina pectoris (CMS/HCC) Primary hypertension (CMS/HCC) Unspecified essential hypertension Stage 3a chronic kidney disease (HCC) (CMS/HCC) Impaired fasting glucose Elevated ALT measurement Mixed hyperlipidemia (CMS/HCC) Mixed hyperlipidemia Class 2 severe obesity with serious comorbidity and body mass index (BMI) of 39.0 to 39.9 in adult, unspecified obesity type (CMS/HCC) Sensorineural hearing loss (SNHL), bilateral Localized edema Edema Dysfunction of both eustachian tubes Bilateral tinnitus Chronic fatigue Other malaise and fatigue Seasonal allergic rhinitis due to pollen Abnormal mammogram Abnormal mammogram, unspecified Chronic myringitis, unspecified laterality Chronic sinusitis, unspecified location Osteoarthritis of sternoclavicular joint, right Equinus contracture of right ankle Enlargement of sternoclavicular joint, right Arthritis, midfoot Arthritis Unspecified arthropathy, site unspecified ACOSTA (dyspnea on exertion) Other dyspnea and respiratory abnormality Severe persistent asthma without complication (CMS/HCC) Abnormal stress test Other nonspecific abnormal cardiovascular system function study Other secondary pulmonary hypertension (CMS/HCC) Palpitations Diverticulosis of colon Diverticulosis of colon (without mention of hemorrhage) Chronic gastritis, presence of bleeding unspecified, unspecified gastritis type Malignant neoplasm of kidney excluding renal pelvis, unspecified laterality (CMS/HCC) Other problems related to lifestyle JOSÉ on CPAP Acute non-recurrent maxillary sinusitis [facility] Diagnosis Chronic bilateral low back pain without sciatica- Primary Abnormal uterine bleeding Unspecified disorder of menstruation and other abnormal bleeding from female genital tract Chronic bilateral low back pain without sciatica documented [facility] Diagnosis Severe persistent asthma without complication (CMS/HCC)- Primary [facility]* Diagnosis OME (otitis media with effusion), left- Primary JOSÉ (obstructive sleep apnea) Obstructive sleep apnea (adult) (pediatric) [facility] N[facility]ative - Reported* Type Description Date Medical History Peptic ulcer disease Medical History JOSÉ Surgical History benign tumor removed from kidne y Surgical History Surgical History cleft palate Surgical History heart cath [facility] Discharge instructions No [facility] for this [facility] available for this [facility] Summary Purpose Family History No Family History Records FoundNo Family History Records FoundNo Family History Records Found No data available for this section No Family History Records FoundNo Family History Records FoundNo Family History Records Found Advance Directives No Advanced Directives Records Found Advance Directive Response Recorded Date/ Time Advance Directives No July 02 21 11:50am Chief Complaint and Reason for Visit Chief Complaint Non Cardiac Chest Pa in,RUQ Abdominal Pain Assessments No Assessments Information Available Reason for Referral Reason Persistent dyspnea, asthma and pulmonary hypertension Diagnosis 1 Pulmonary hypertensi on (I27.20) Referral Organization [facility] Referring Provider First Name Booker Referring Provider Last Name Jing Referring Provider Specialty Pulmonary D iseases Referred Organization [facility] Referred Address [address], [place],[address] Referred Provider Specialty Pulmonary Re hab Referral Priority Routine Additional Source Comments INFORMATION SOURCE (unrecogn ized section and content) DATE CREATED AUTHOR 04/29/2020 [facility] DATE CREATED AUTHOR AUTHOR'S ORGANIZ ATION 07/25/2020 [facility] DATE CREATED AUTHOR AUTHOR'S ORGANIZ ATION 08/07/2022 [facility] DATE CREATED AUTHOR AUTHOR'S ORGANIZ ATION 09/30/2023 Rodarte Ceiba [facility] DATE CREATED AUTHOR AUTHOR'S ORGANIZ ATION 05/29/2024 [facility] DATE CREATED AUTHOR AUTHOR'S ORGANIZ ATION 06/04/2024 [facility] REASON FOR VISIT (unrecogniz ed section and content) Reason Comments Back Pain Reason Comments Follow-up No surgeries; no hos pital stays. Reason Comments Tinnitus Follow up Sleep Apnea CPAP questions Care Teams (unrecognized sec tion and content) Magistrate Assistant Relationship Specialty Start Date End Date Luis Enrique Pedraza MD [address] [place] [address] PCP - General Family Medicine 08/04/22 Magistrate Assistant Relationship Specialty Start Date End Date Luis Enrique Pedraza MD [address] [place] [address] PCP - General Family Medicine 08/04/22 Magistrate Assistant Relationship Specialty Start Date End Date Luis Enrique Pedraza MD [address] [place] [address] PCP - General Family Medicine 08/04/22 Magistrate Assistant Relationship Specialty Start Date End Date Luis Enrique Pedraza MD [address] [place] [address] PCP - General Family Medicine 08/04/22 Magistrate Assistant Relationship Specialty Start Date End Date Luis Enrique Pedraza MD [address] [place] [address] PCP - General Family Medicine 08/04/22 Magistrate Assistant Relationship Specialty Start Date End Date Luis Enrique Pedraza MD [address] [place] [address] PCP - General Family Medicine 08/04/22 Magistrate Assistant Relationship Specialty Start Date End Date Luis Enrique Pedraza MD [address] [facility] [address] [place] [address] PCP - General Family Medicine 08/04/22 Magistrate Assistant Relationship Specialty Start Date End Date Luis Enrique Pedraza MD [address] [facility] [address] [place] [address] PCP - General Family Medicine 08/04/22 FOR RECORDS PERTAINING TO PATIENTS WHO ARE OR HAVE BEEN ENROLLED IN A CHEMICAL DEPENDENCY/SUBSTANCEABUSE PROGRAM, SOME INFORMATION MAY BE OMITTED. This clinical summary was aggregated from multiple sources. Caution should be exercised in using it in the provision of clinical care. This summary normalizes information from multiple sources, and as a consequence, information in this document may materially change the coding, format and clinical context of patient data. In addition, data may be omitted in some cases. CLINICAL DECISIONS SHOULD BE BASED ON THE PRIMARY CLINICAL RECORDS. [employer] [facility]. provides no warranty or guarantee of the accuracy or completeness of information in this document.
== END 2024-06-06 20:52 | disposition home or self-care (01) ==
LOC: SLEEP 20:52
PROVIDERS: PCP Otolaryngology; Visit Provider Otolaryngology
DX: G47.33 Obstructive sleep apnea (adult) (pediatric) (principal)
CPT/HCPCS: 95811

== ENCOUNTER 2024-06-12 07:56 | Outpatient (OUT) | payer MEDICARE, SELFPAY ==
--- NOTE | 2024-06-12 08:00 | CA_ITS ---
Patient Name: GOYO HENDERSON MR#: [id number] : 1955 Exam Date: 06/12/2024 Ordering Doctor: DR ARUN MELO M.D. ECHOCARDIOGRAM REPORT PROCEDURE: CA ECHO DOPPLER COMPLETE INDICATIONS: Dyspnea, hypertension, diabetes COMPARISON: None. DESCRIPTION: COMPLETE ECHOCARDIOGRAM Real-time transthoracic echocardiography with 2D, M-mode, spectral and color flow Doppler performed. QUALITY: Technical quality was good. LEFT VENTRICLE: Normal chamber size. Normal left ventricular wall thickness. Calculated left ventricular ejection fraction is 60%. LV EF: Normal left ventricular ejection fraction, (>55%). DIASTOLIC: Normal diastolic function. ATRIAL SEPTUM: LEFT ATRIUM: Normal chamber size. RIGHT ATRIUM: Normal chamber size. RIGHT VENTRICLE: Normal chamber size. Normal right ventricular systolic function. TRICUSPID VALVE: Normal mobility and thickness. No stenosis with trivial regurgitation. No evidence of pulmonary hypertension. RVSP 29 mmHg MITRAL VALVE: Normal mobility and thickness. No evidence of mitral valve stenosis. There is no mitral annular calcification. Trivial mitral regurgitation. AORTIC VALVE: Normal trileaflet appearance. No visible sclerosis. Normal leaflet mobility. No evidence of aortic valve stenosis. AORTIC ROOT: Normal diameter and appearance. Ascending aorta is normal in size. PULMONIC VALVE: Not well visualized. No stenosis. No regurgitation. PERICARDIUM: No evidence of pericardial effusion. IVC: Not well visualized. PLEURA: CONCLUSION: 1. Normal ventricular size and systolic function. LVEF is estimated at 55 to 60%. 2. No significant valvular dysfunction. 3. Normal right-sided pressures. 4. No pericardial effusion. Adult Echocardiography Procedure Report Left Ventricle LVEDD (3.7 - 5.6 cm): 4.14 cm LVESD (2.2 - 4.0 cm): 2.53 cm LVIVS thickness (0.6 - 1.2 cm): 0.97 cm LVPW thickness (0.5 - 1.0 cm): 0.95 cm e': 0.07 m/s E - e': 10.66 LVOT Max Gradient: 5.94 mm[Hg] LVOT Area (cm2): 1.22 m/s Peak Velocity (LVOT): 1.22 m/s Mean Velocity (LVOT): 0.74 m/s LVOT Diameter 2.01 cm Left Atrium LA Volume Index (2D A2C): 26.60 ml/m2 Left Atrium Systolic Dimension: 4.34 cm Mitral Valve MV E to A Ratio: 1 Mitral Valve A-Wave Peak Velocity: 0.74 m/s Mitral Valve E-Wave Peak Velocity: 0.74 m/s Right Ventricle Aorta AO Root Diam: 2.90 cm Ascending Ao Diam: 2.86 cm Aortic Valve AoV Area (Peak Giuliano): 3.10 cm2, 3.10 cm2 AoV Area (VTI): 2.76 cm2, 2.76 cm2 Peak Velocity(Antegrade Flow): 1.24 m/s Peak Gradient(Antegrade Flow): 6.15 mm[Hg] Mean Velocity(Antegrade Flow): 0.84 m/s Mean Gradient(Antegrade Flow): 3.18 mm[Hg] Velocity Time Integral: 28.47 cm Tricuspid Valve Peak Velocity (Regurgitant Flow): 2.53 m/s Pulmonic Valve Mean Gradient: 2.35 mm[Hg] Mean Velocity: 0.72 m/s Peak Velocity: 1.07 m/s, 0.86 m/s Peak Gradient: 2.95 mm[Hg], 4.61 mm[Hg] Right Atrium Right Atrium Systolic Pressure: 43.32 ml, 43.32 ml Dictated by: Arun Melo M.D. on 06/12/2024 at 17:49 Approved by: Arun Melo M.D. on 06/12/2024 at 17:53
== END 2024-06-12 07:57 | disposition home or self-care (01) ==
LOC: CARD 07:56
PROVIDERS: PCP Otolaryngology; Visit Provider Internal Medicine Interventional Cardiology
DX: R06.02 Shortness of breath (principal)
CPT/HCPCS: 93306